=== PATIENT | male | born 1960 | race Caucasian/White ===

== ENCOUNTER 2018-02-25 10:04 | Inpatient (IN) ==
--- NOTE | 2018-02-25 10:30 | CT ---
EXAM DATE: 02/25/2018 10:22 AM EST AGE/SEX: 57 years / Male INDICATIONS: STROKE ALERT CLINICAL DATA: This is the patient's initial encounter. Patient reports that signs and symptoms have been present for 1 day and indicates a pain score of Nonresponsive. MEDICAL/SURGICAL HISTORY: None. None. RADIATION DOSE: 53.46 CTDI (mGy) COMPARISON: No prior exams available for comparison. TECHNIQUE: CT of the head without contrast. Using automated exposure control and adjustment of the mA and/or kV according to patient size, radiation dose was kept as low as reasonably achievable to ob tain optimal diagnostic quality images. DICOM format image data is available electronically for revi ew and comparison. FINDINGS: Cerebrum: The ventricles are normal for age. No evidence of midline shift, mass lesion, hemorrhage or acute infarction. No extraaxial fluid collections are seen. Posterior Fossa: There is acute high density material identified within the central farida consistent with acute hemorrhage. The fourth ventricle is patent. Extracranial: The visualized portion of the orbits is intact. Skull: The calvaria is intact. No evidence of skull fracture. CONCLUSION: 1. Acute pontine hemorrhage. No evidence of hydrocephalus or effacement of the fourth ventricle. Report was called by [Dr. Nicolas to Dr. Ramires at 10:27 AM. ] Electronically signed by: Chari Nicolas MD Board Certified Radiologist 02/25/2018 10:28 AM Harshil SANTILLAN
--- NOTE | 2018-02-25 10:32 | ED ---
HPI General Chief Complaint: Stroke Alert Stated Complaint: stroke alert/evac Time Seen by Provider: 02/25/18 10:06 History of Present Illness HPI Narrative: Is a 57-year-old male with history of hypertension, dyslipidemia , tobacco use, presents via EMS as a stroke alert. Patient was last seen normal at 7:40 AM. Patient apparently started experiencing slurred speech with right-sided facial droop and left upper and lower extremity weakness. Patient also has dysarthria. Patient denies any headache. He denies any previous history of stroke. Patient was just recently seen by his primary care physician according to the medics. There are no other complaints at time of examination. Related Data Home Medications Medication Instructions Recorded Confirmed albuterol sulfate [ProAir HFA] 2 puff INHALATION Q4-6H PRN 02/25/18 02/25/18 fpmfxfi-bxnmxjnvazopo-emnmugmo 1 tab PO Q4-6H PRN 02/25/18 02/25/18 [Excedrin Extra Strength] carvedilol 12.5 mg PO DAILY 02/25/18 02/25/18 gabapentin 600 mg PO TID 02/25/18 02/25/18 hydrocodone-acetaminophen 1 tab PO Q4H PRN 02/25/18 02/25/18 Allergies Allergy/AdvReac Type Severity Reaction Status Date / Time No Known Allergies Allergy Verified 02/25/18 10:07 Review of Systems ROS: all other systems reviewed are negative Constitutional Reports system reviewed and no additional complaints, except as docu Eyes Reports blurry vision (Denies) and Denies diplopia (Denies) ENT Reports system reviewed and no additional complaints, except as docu Cardiovascular Denies chest pain and Denies irregular heart rhythm Respiratory Denies chest congestion and Denies cough Gastrointestinal Denies abdominal pain, Reports nausea and Reports vomiting Genitourinary Reports system reviewed and no additional complaints, except as docu Musculoskeletal Reports other (Left upper and lower extremity weakness) Neurologic Denies confusion, Denies syncope, Denies headache(s), Reports weakness and Reports other (Dysarthria) PMFSH Medical History Medical History Chronic back pain (Acute) Hyperlipidemia (Acute) Hypertension (Acute) Surgical History Surgical History Previous back surgery (Acute) Social History Social History Recent Travel in [facility] within the Last 8 Weeks: No Recent Out of Country Travel within the Last 8 Weeks: No Exam Narrative Exam Narrative: GENERAL: Well-developed well-nourished male in no acute respiratory distress. SKIN: Focused skin assessment warm/dry. HEAD: Atraumatic. Normocephalic. EYES: Pupils equal and round. No scleral icterus. No injection or drainage. ENT: No nasal bleeding or discharge. Mucous membranes pink and moist. NECK: Trachea midline. Supple CARDIOVASCULAR: Regular rate and rhythm. No murmur appreciated. RESPIRATORY: No accessory muscle use. Clear to auscultation. Breath sounds equal bilaterally. GASTROINTESTINAL: Abdomen soft, non-tender, nondistended. Hepatic and splenic margins not palpable. MUSCULOSKELETAL: No obvious deformities. No clubbing. No cyanosis. No edema. NEUROLOGICAL: Awake and alert. Right-sided facial droop. Patient had 3 out of 5 strength in his left upper extremity and 4 out of 5 strength in his left lower extremity. He was unable to perform heel to le with his left leg. Patient does have dysarthria as well. There is no confusion. Course Initial Documented Vital Signs Temperature 98.2 F 02/25/18 10:05 Pulse Rate 54 L 02/25/18 10:05 Respiratory Rate 18 02/25/18 10:05 Blood Pressure 188/100 H 02/25/18 10:05 Pulse Oximetry 97 02/25/18 10:05 Last Documented Vital Signs Temperature 98.2 F 02/25/18 10:05 Pulse Rate 56 L 02/25/18 11:26 Respiratory Rate 26 H 02/25/18 11:26 Blood Pressure 188/100 H 02/25/18 10:05 Pulse Oximetry 98 02/25/18 11:26 Critical Care Time Critical Care Time: Yes Total Critical Care Time: 45 Attestation: Aggregate critical care time was 45 minutes. Time to perform other separately billable procedures was not included in the critical care time. My time did not include minutes spent treating any other patients simultaneously or on activities that did not directly contribute to the patient's treatment. The services I provided to this patient were to treat and/or prevent clinically significant deterioration that could result in: I provided critical care services requiring my management, as noted below: Chart data review, documentation time, medication orders and management, vital sign assessments/reviewing monitor data, ordering and reviewing lab tests, ordering and interpreting/reviewing x-rays and diagnostic studies, care of the patient and discussion of the patient with the admitting physicians. NIH Stroke Scale NIH Stroke Scale Level of Consciousness: 0-Alert Orientation Questions: 0-Answers both correct Responds to Commands: 0-Both tasks correct Gaze Eye Movement: 0-Horizontal movement WNL Visual Dupont: 0-No visual field defect Facial Movement: 1-Minor facial palsy Motor Functions Arm LEFT: 1-Drift before 10 seconds Motor Functions Arm RIGHT: 0-No drift Motor Functions Leg LEFT: 1-Drift before 5 seconds Motor Functions Leg RIGHT: 0-No drift Limb Ataxia: 2-Ataxia in two limbs Sensory Loss: 0-No sensory loss Best Language: 0-Normal Articulation: 1-Mild dysarthia Extinction or Inattention Sensory: 0-Absent Total: 6 Medical Decision Making MDM Narrative Medical decision making narrative: This is a 57-year-old male with history of hypertension, dyslipidemia, tobacco use, presents here via EMS as a stroke alert. The patient was last seen normal at 7:40 AM. He was within the 3-hour window. Patient was taken emergently to the CT scan which showed a pontine hemorrhage. There was no fourth ventricle effacement. Patient was awake and up alert. He did have dysarthria. Patient's blood pressure was 188/100. Case was discussed with Dr. Bigg Ramires, on-call neurologist who recommended patient be transferred emergently to the [facility] with neurosurgery consult. I spoke with Dr. Church, on-call neurosurgeon, who will see the patient in consultation. Discussion was whether or not to lower his blood pressure and the decision was made to keep it as it is until he arrived at the [facility]. Case was discussed with Dr. Kidd, on-call identity access management architect who will let the ISC intensive is no about the admission. Medical Screen Exam Complete: Yes Emergency Medical Condition: Yes Differential Diagnosis Differential Diagnosis: Embolic versus hemorrhagic stroke versus Hardy's palsy versus metabolic derangement versus hypoglycemia Lab Data Result diagrams: 02/25/18 11:11 02/25/18 11:11 Lab Results 02/25/18 02/25/18 02/25/18 Range/Units 10:23 11:11 11:11 CBC w Diff Auto diff final WBC 8.9 (4.0-11.0) th/mm3 RBC 4.63 (4.50-5.90) mil/mm3 Hgb 12.7 L (13.0-17.0) gm/dL Hct 38.9 L (39.0-51.0) % MCV 84.0 (80.0-100.0) fL MCH 27.5 (27.0-34.0) pg MCHC 32.7 (32.0-36.0) % RDW 15.8 (11.6-17.2) % Plt Count 432 (150-450) th/mm3 MPV 8.1 (7.0-11.0) fL Neut % (Auto) 51.7 (16.0-70.0) % Lymph % (Auto) 33.9 (9.0-44.0) % [place] % (Auto) 8.3 H (0.0-8.0) % Eos % (Auto) 4.9 H (0.0-4.0) % Baso % (Auto) 1.2 (0.0-2.0) % Neut # (Auto) 4.7 (1.8-7.7) th/mm3 Lymph # (Auto) 3.0 (1.0-4.8) th/mm3 [place] # (Auto) 0.7 (0.0-0.9) th/mm3 Eos # (Auto) 0.4 (0.0-0.4) th/mm3 Baso # (Auto) 0.1 (0.0-0.2) th/mm3 WBC Differential . Differential Comment . PT 10.7 (9.8-11.6) sec INR 1.1 Ratio APTT 28.4 (23.4-31.7) sec Fibrinogen 309 (227-377) mg/dL Sodium (136-145) meq/L Potassium (3.5-5.1) meq/L Chloride (98-107) meq/L Carbon Dioxide (21.0-32.0) meq/L Anion Gap (5-15) meq/L BUN (7-18) mg/dL Creatinine (0.60-1.30) mg/dL Estimated GFR (>89) mL/min POC Glucose 91 (68-110) mg/dl Random Glucose (74-106) mg/dL Calcium (8.5-10.1) mg/dL Phosphorus (2.5-4.9) mg/dL Magnesium (1.5-2.5) mg/dL Total Bilirubin (0.2-1.0) mg/dL AST (15-37) U/L ALT (12-78) U/L Alkaline Phosphatase (45-117) U/L Total Creatine Kinase (39-308) U/L Troponin I (0.02-0.05) ng/mL Total Protein (6.4-8.2) g/dL Albumin (3.4-5.0) g/dL TSH (0.358-3.740) uIU/mL 02/25/18 Range/Units 11:11 CBC w Diff WBC (4.0-11.0) th/mm3 RBC (4.50-5.90) mil/mm3 Hgb (13.0-17.0) gm/dL Hct (39.0-51.0) % MCV (80.0-100.0) fL MCH (27.0-34.0) pg MCHC (32.0-36.0) % RDW (11.6-17.2) % Plt Count (150-450) th/mm3 MPV (7.0-11.0) fL Neut % (Auto) (16.0-70.0) % Lymph % (Auto) (9.0-44.0) % [place] % (Auto) (0.0-8.0) % Eos % (Auto) (0.0-4.0) % Baso % (Auto) (0.0-2.0) % Neut # (Auto) (1.8-7.7) th/mm3 Lymph # (Auto) (1.0-4.8) th/mm3 [place] # (Auto) (0.0-0.9) th/mm3 Eos # (Auto) (0.0-0.4) th/mm3 Baso # (Auto) (0.0-0.2) th/mm3 WBC Differential Differential Comment PT (9.8-11.6) sec INR Ratio APTT (23.4-31.7) sec Fibrinogen (227-377) mg/dL Sodium 138 (136-145) meq/L Potassium 3.7 (3.5-5.1) meq/L Chloride 101 (98-107) meq/L Carbon Dioxide 30.8 (21.0-32.0) meq/L Anion Gap 6 (5-15) meq/L BUN 4 L (7-18) mg/dL Creatinine 0.79 (0.60-1.30) mg/dL Estimated GFR Greater than 89 (>89) mL/min POC Glucose (68-110) mg/dl Random Glucose 84 (74-106) mg/dL Calcium 8.3 L (8.5-10.1) mg/dL Phosphorus 3.1 (2.5-4.9) mg/dL Magnesium 2.1 (1.5-2.5) mg/dL Total Bilirubin 0.4 (0.2-1.0) mg/dL AST 21 (15-37) U/L ALT 15 (12-78) U/L Alkaline Phosphatase 61 (45-117) U/L Total Creatine Kinase 148 (39-308) U/L Troponin I Less than 0.02 L (0.02-0.05) ng/mL Total Protein 7.4 (6.4-8.2) g/dL Albumin 3.9 (3.4-5.0) g/dL TSH 1.480 (0.358-3.740) uIU/mL Imaging Data Radiologist's impression: Chest X-Ray 02/25/18 10:07 CONCLUSION: Cardiomegaly without evidence of congestive heart failure. Head CT 02/25/18 10:07 CONCLUSION: 1. Acute pontine hemorrhage. No evidence of hydrocephalus or effacement of the fourth ventricle. Report was called by [Dr. Nicolas to Dr. Ramires at 10:27 AM. ] Discharge Plan Discharge Disposition Patient Disposition: ED Admit(ED Internal Use Only) Discharge Order Discharge Orders: ED Use Only Admit Order (Routine); Ordered 02/25/18 Ordered By: Lopez Jernigan Discharge Details Diagnosis: Stroke due to intracerebral hemorrhage, Hypertension, Dyslipidemia, Tobacco use disorder Physicians Team ED Provider: Lopez Jernigan Primary Care Provider: Sage Walker Attending Provider: Ratna Darling Other Providers: Bigg Ramires ; James Church ; Dave Morrison Discharge Interventions Interventions: ED Discharge Assessment Last Done: 02/25/18 10:40 Status ED Status: Admitted Patient
--- NOTE | 2018-02-25 10:45 | XR ---
EXAM DATE: 02/25/2018 10:33 AM EST AGE/SEX: 57 years / Male INDICATIONS: Stroke alert CLINICAL DATA: This is the patient's initial encounter. Patient reports that signs and symptoms have been present for 1 day and indicates a pain score of 0/10. MEDICAL/SURGICAL HISTORY: None. None. COMPARISON: No prior exams available for comparison. FINDINGS: Single AP view of the chest demonstrates moderate cardiomegaly. Pulmonary vasculature appears normal in caliber. Lungs are clear. Osseous structures demonstrate fusion hardware within the lower thoracic and upper lumbar spine. CONCLUSION: Cardiomegaly without evidence of congestive heart failure. Electronically signed by: Chari Nicolas MD Board Certified Radiologist 02/25/2018 10:44 AM E
[2018-02-25] MEDS ORDERED: Dextrose 50% in Water 50 ML Vial IV.PUSH PRN (10:55)
[2018-02-25] MEDS ORDERED: Bisacodyl 10 MG Supp RECTAL PRN (10:56)
[2018-02-25] MEDS ORDERED: Sod Chloride 0.9% Inj 1,000 ML IV.CONT SCH (11:00)
[2018-02-25 11:13] LABS: Baso # (Auto) 0.1 th/mm3 (0.0-0.2); Baso % (Auto) 1.2 % (0.0-2.0); Eos # (Auto) 0.4 th/mm3 (0.0-0.4); Eos % (Auto) 4.9 % (0.0-4.0); Hematocrit 38.9 % (39.0-51.0); Hemoglobin 12.7 gm/dL (13.0-17.0); Lymph % (Auto) 33.9 % (9.0-44.0); Mean Corpuscular HGB Conc 32.7 % (32.0-36.0); Mean Corpuscular Hemoglobin 27.5 pg (27.0-34.0); Mean Platelet Volume 8.1 fL (7.0-11.0); Mono # (Auto) 0.7 th/mm3 (0.0-0.9); Mono % (Auto) 8.3 % (0.0-8.0); Neut # (Auto) 4.7 th/mm3 (1.8-7.7); Neut % (Auto) 51.7 % (16.0-70.0); Platelet Count 432 th/mm3 (150-450); Red Blood Count 4.63 mil/mm3 (4.50-5.90); Red Cell Distribution Width 15.8 % (11.6-17.2); White Blood Count 8.9 th/mm3 (4.0-11.0)
[2018-02-25 11:19] LABS: Chloride 101 meq/L (98-107); Potassium 3.7 meq/L (3.5-5.1); Sodium 138 meq/L (136-145)
[2018-02-25 11:25] LABS: Albumin 3.9 g/dL (3.4-5.0); Anion Gap 6 meq/L (5-15); Calcium 8.3 mg/dL (8.5-10.1); Carbon Dioxide 30.8 meq/L (21.0-32.0); Glucose,Random 84 mg/dL (74-106); Magnesium 2.1 mg/dL (1.5-2.5)
[2018-02-25 11:26] LABS: Blood Urea Nitrogen 4 mg/dL (7-18)
[2018-02-25 11:28] LABS: Alanine Aminotransferase 15 U/L (12-78); Aspartate Aminotransferase 21 U/L (15-37)
[2018-02-25 11:29] LABS: Glomerular Filtration Rate Greater Than 89 mL/min (>89); Phosphorus 3.1 mg/dL (2.5-4.9)
[2018-02-25 11:30] LABS: Activated Partial Thrombo Time 28.4 sec (23.4-31.7); INR 1.1 Ratio; Prothrombin Time 10.7 sec (9.8-11.6); Total Protein 7.4 g/dL (6.4-8.2)
[2018-02-25 11:31] LABS: Alkaline Phosphatase 61 U/L (45-117); Creatine Kinase 148 U/L (39-308)
[2018-02-25] MEDS ORDERED: niCARdipine Inj 25 MG in Sodium Chlor 0.9% Inj 240 ML IV.CONT PRN (11:35)
--- NOTE | 2018-02-25 12:03 | P.HPCC ---
History of Present Illness Service: Critical care medicine Primary Care Physician: Sage Walker MD Chief Complaint: Weak left side History of Present Illness: This 57-year-old gentleman developed left-sided weakness and difficulty with speech. He presented as a stroke alert to [facility] with blood pressure 188/100, bradycardia at 52, and a CAT scan which reveals an acute pontine hemorrhage. He was transferred to the main campus or I met him on his arrival to the ICU. Blood pressure is 208/110. 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 He has spinal hardware in place but the extent of the injury is not available to us. He states that with rehabilitation he was walking again. Additionally, he is a heavy smoker and arrives with COPD exacerbation and severe bronchospasm. We have delivered 3 inhalation bronchodilator treatments back to back and his air movement is improved. - Diagnosis (1) Stroke, hemorrhagic (2) Pontine hemorrhage (3) COPD with acute exacerbation (4) Hypertensive urgency (5) Bilateral inguinal hernia Inpatient Certification: I certify that the inpatient services were ordered in accordance with Medicare regulations governing the order. This includes certification that hospital inpatient services are reasonable and necessary and in the case of services not specified as inpatient-only under 42 CFR 419.22(n), that they are appropriately provided as inpatient services in accordance to with the 2-midnight benchmark under 43 CFR 412.3(e) Estimated Total Length of Stay (Days): 5 Plans for Post Hospital Care: Not yet determined Review of Systems No headache. Severe shortness of breath. New-onset slurred speech and left- sided weakness. [facility] - History History Provided By: Patient, Engagement Director / EMT - Medical History Medical History: Medical History (Last Updated 02/25/18 @ 10:31 by Krissy Dozier RN) Chronic back pain Hyperlipidemia Hypertension - Surgical History Surgical History: Surgical History (Last Updated 02/25/18 @ 10:31 by Krissy Dozier RN) Previous back surgery - Travel History Recent Travel in the [place] Within the Last 8 Weeks: No Recent Travel Out of the Country Within the Last 8 Weeks: No Medications and Allergies Active Medications: Active Medications Acetaminophen (Tylenol) 650 mg PO Q6H PRN PRN Reason: PAIN 1-10 AND/OR FEVER >101F Al Hydroxide/Mg Hydroxide (Milk Of Magnesia Liq) 30 ml PO Q12H PRN PRN Reason: Mild Constipation Albuterol (Albuterol Neb (Shakeel)) 2.5 mg NEB Q2HR NEB PRN PRN Reason: SHORTNESS OF BREATH/WHEEZING Albuterol (Duoneb Neb (Prn)) 1 ampul NEB Q4HR NEB [facility] Bisacodyl (Dulcolax Supp) 10 mg RECTAL DAILY PRN PRN Reason: SEVERE CONSITIPATION Chlorhexidine Gluconate (Chlorhexidine 2% Cloth) 3 pack TOPICAL DAILY@0400 SHAKEEL Stop: 03/03/18 03:59 Chlorhexidine Gluconate (Chlorhexidine 2% Cloth) 3 pack TOPICAL DAILY@0400 PRN PRN Reason: Extra cloth needed Stop: 03/03/18 03:59 Dextrose (D50w Vial) 50 ml IV.PUSH UNSCH PRN PRN Reason: PER HYPOGLYCEMIA PROTOCOL Glucagon (Glucagon Inj) 1 mg OTHER PRN PRN PRN Reason: for Hypoglycemia Protocol Hydralazine HCl (Apresoline Inj) 20 mg IV.PUSH Q1H PRN PRN Reason: SBP > 140 Sodium Chloride (Ns Inj) 1,000 mls @ 70 mls/hr IV.CONT .[id number] SHAKEEL Levetiracetam (Keppra 1000 Mg/100 Ml Premix) 100 mls @ 400 mls/hr IV.SIG ONCE ONE Stop: 02/25/18 11:04 Levetiracetam 500 mg/ Sodium (Chloride) 105 mls @ 400 mls/hr IV.SIG Q12H SHAKEEL Nicardipine HCl 25 mg/ Sodium (Chloride) 250 mls @ 50 mls/hr IV.CONT TITRATE PRN; Protocol PRN Reason: Per Protocol Insulin Aspart (Novolog Insulin Correctional Sugar Inj) 0 unit SQ Q6HR [facility]; Protocol Labetalol HCl (Trandate Inj) 10 mg IV.PUSH Q1H PRN PRN Reason: Sbp>140, Dbp>90, Hr>65 Lactulose (Lactulose Liq) 30 ml PO DAILY PRN PRN Reason: SEVERE CONSITIPATION Ondansetron HCl (Zofran Inj) 4 mg IV.PUSH Q6H PRN PRN Reason: NAUSEA Pantoprazole Sodium (Protonix Inj) 40 mg IV.PUSH DAILY SHAKEEL Senna/Docusate Sodium (Marlyn-Colace) 1 tab PO BID [facility] Sennosides (Senokot) 17.2 mg PO Q12H PRN PRN Reason: Moderate Constipation Sodium Chloride (Ns Flush) 2 ml IV.FLUSH BID SHAKEEL Sodium Chloride (Ns Flush) 2 ml IV.FLUSH PRN PRN PRN Reason: FLUSH AFTER USING IV ACCESS Allergies Allergy/AdvReac Type Severity Reaction Status Date / Time No Known Allergies Allergy Verified 02/25/18 10:07 Home Medications Medication Instructions Recorded Confirmed Type albuterol sulfate [ProAir HFA] 2 puff INHALATION Q4-6H PRN 02/25/18 02/25/18 History vwimoju-rovbicedcgydd-alpbvpjo 1 tab PO Q4-6H PRN 02/25/18 02/25/18 History [Excedrin Extra Strength] carvedilol 12.5 mg PO DAILY 02/25/18 02/25/18 History gabapentin 600 mg PO TID 02/25/18 02/25/18 History hydrocodone-acetaminophen 1 tab PO Q4H PRN 02/25/18 02/25/18 History Results - Labs CBC & Chem 7: 02/25/18 11:11 02/25/18 11:11 Labs: Short CBC 02/25/18 Range/Units 11:11 WBC 8.9 (4.0-11.0) th/mm3 Hgb 12.7 L (13.0-17.0) gm/dL Hct 38.9 L (39.0-51.0) % Plt Count 432 (150-450) th/mm3 BMP 02/25/18 11:11 Sodium 138 Potassium 3.7 Chloride 101 Carbon Dioxide 30.8 BUN 4 L Creatinine 0.79 Calcium 8.3 L Liver Function 02/25/18 Range/Units 11:11 Total Bilirubin 0.4 (0.2-1.0) mg/dL AST 21 (15-37) U/L ALT 15 (12-78) U/L Albumin 3.9 (3.4-5.0) g/dL - Imaging Impressions Chest X-Ray 02/25/18 10:07 CONCLUSION: Cardiomegaly without evidence of congestive heart failure. Head CT 02/25/18 10:07 CONCLUSION: 1. Acute pontine hemorrhage. No evidence of hydrocephalus or effacement of the fourth ventricle. Report was called by [Dr. Nicolas to Dr. Ramires at 10:27 AM. ] Exam Vital signs: Vital Signs 02/25/18 10:05 02/25/18 10:27 02/25/18 11:26 Temperature 98.2 F Pulse Rate 52 L 56 L Respiratory Rate 18 26 H Blood Pressure 188/100 H Pulse Oximetry 97 97 98 Intake & Output 02/24/18 02/25/18 02/25/18 18:59 06:59 18:59 Weight 56.1 kg Narrative: General: Middle-aged man in considerable respiratory distress Head: Atraumatic, normal Neck: Supple, airway widely patent, transmitted wheezes from lower airways. Lungs: Diffuse wheezing, poor air movement, left side worse than right. Unlabored respiratory effort. Heart: Distant tones, regular rate and rhythm, bradycardia at 54. Abdomen: Soft, nondistended, no guarding, no tenderness, bowel sounds are present Inguinal region: Bilateral large inguinal hernias with right hernia containing intestine and left hernia containing large amount of intestine extending into scrotum. Extremities: Musculature of the legs diminutive. Neuro: Alert, conversant, oriented x3. RADHA. EOMs intact. Shoulder shrug symmetrical. Tongue protrusion deviates right. Right facial droop. Left arm with 2/5 strength left leg with 4/5 strength, poor coordination. Right arm with 5/5 strength and normal coordination. Right leg with 5/5 strength. Unable to get deep tendon reflex response in either lower extremity. No clonus. Caprini VTE Risk Assessment Caprini VTE Risk Assessment: Moderate/High Risk (score >= 2) VTE Pharmacological Exception Reason: Active bleeding Caprini Risk Assessment Model: Point Value = 1 Point Value = 2 Point Value = 3 Point Value = 5 Age 41-60 Minor surgery BMI > 25 kg/m2 Swollen legs Varicose veins or History of unexplained or recurrent spontaneous Oral contraceptives or hormone replacement Sepsis (< 1 month) Serious lung disease, including pneumonia (< 1 month) Abnormal pulmonary function Acute myocardial infarction Congestive heart failure (< 1 month) History of inflammatory bowel disease Medical patient at bed rest Age 61-74 Arthroscopic surgery Major open surgery (> 45 min) Laparoscopic surgery (> 45 min) Malignancy Confined to bed (> 72 hours) Immobilizing plaster cast Central venous access Age >= 75 History of VTE Family history of VTE Factor V Leiden Prothrombin [id number] Lupus anticoagulant Anticardiolipin antibodies Elevated serum homocysteine Heparin-induced thrombocytopenia Other congenital or acquired thrombophilia Stroke (< 1 month) Elective arthroplasty Hip, pelvis, or leg fracture Acute spinal cord injury (< 1 month) Prophylaxis Regimen: Total Risk Factor Score Risk Level Prophylaxis Regimen 0-1 Low Early ambulation 2 Moderate Order ONE of the following: *Sequential Compression Device (SCD) *Heparin 5000 units SQ BID 3-4 Higher Order ONE of the following medications: *Heparin 5000 units SQ TID *Enoxaparin/Lovenox 40 mg SQ daily (WT < 150 kg, CrCl > 30 mL/min) *Enoxaparin/Lovenox 30 mg SQ daily (WT < 150 kg, CrCl > 10-29 mL/min) *Enoxaparin/Lovenox 30 mg SQ BID (WT < 150 kg, CrCl > 30 mL/min) AND/OR *Sequential Compression Device (SCD) 5 or more Highest Order ONE of the following medications: *Heparin 5000 units SQ TID (Preferred with Epidurals) *Enoxaparin/Lovenox 40 mg SQ daily (WT < 150 kg, CrCl > 30 mL/min) *Enoxaparin/Lovenox 30 mg SQ daily (WT < 150 kg, CrCl > 10-29 mL/min) *Enoxaparin/Lovenox 30 mg SQ BID (WT < 150 kg, CrCl > 30 mL/min) AND *Sequential Compression Device (SCD) Assessment and Plan - Problem List (1) Stroke, hemorrhagic Code(s): I61.9 - Nontraumatic intracerebral hemorrhage, unspecified Status: Acute (2) Pontine hemorrhage Code(s): I61.3 - Nontraumatic intracerebral hemorrhage in brain stem Status: Acute (3) COPD with acute exacerbation Code(s): J44.1 - Chronic obstructive pulmonary disease with (acute) exacerbation Status: Acute (4) Hypertensive urgency Code(s): I16.0 - Hypertensive urgency Status: Acute (5) Bilateral inguinal hernia Code(s): K40.20 - Bilateral inguinal hernia, without obstruction or gangrene, not specified as recurrent Status: Acute - Assessment and Plan Plan: Plan: Neurological -Maintain systolic blood pressure less than 140 with intravenous Cardene -Watch airway control carefully -Neurosurgical evaluation -Check coagulation profile and platelet count -Repeat CAT scan for sudden deterioration, follow with repeat in a.m. Cardiovascular -Hold patient's home beta-katiana due to bradycardia -Maintain blood pressure less than 140/90 Respiratory -Head of bed up 30 degrees until bronchospasm breaks -Albuterol bronchodilator inhalation therapy -Supplemental oxygen to maintain sat greater than 92% -Steroids every 6 hours if bronchospasm persists GI -N.p.o. -Swallow evaluation -May need nasogastric tube -Watch I's and O's closely. Renal -Hold patient's oral antihypertensives and use short acting agents for now Hematology -Anticipate chronic polycythemia ID -Cover with Levaquin for COPD exacerbation Prophylaxis -SCDs -Chemical DVT prophylaxis contraindicated because of acute bleed -Pepcid for GI ulcer prophylaxis Overall impression: This 57-year-old gentleman arrives in critical condition with a hypertensive hemorrhage in the farida. His care is further complicated by malignant hypertension and COPD exacerbation. He remains critically ill and his condition is guarded at this time. Critical care time 45 minutes aside from procedures. (5) Bilateral inguinal hernia Qualifiers: Obstruction and gangrene presence: without obstruction or gangrene Recurrence : recurrent Qualified Code(s): K40.21 - Bilateral inguinal hernia, without obstruction or gangrene, recurrent
[2018-02-25] MEDS ORDERED: Potassium Chloride 25 MEQ Effervescent Tablet PO PRN (12:04)
[2018-02-25] MEDS ORDERED: Magnesium Sulfate Inj 2 GM in Sodium Chlor 0.9% Inj 96 ML IV.SIG PRN (12:04)
[2018-02-25] MEDS ORDERED: Potassium Phosphate 500 MG Soluble Tablet PO PRN ×2 (12:04)
[2018-02-25] MEDS ORDERED: Potassium Phosphate Inj 30 MMOL in Sodium Chlor 0.9% Inj 250 ML IV.SIG PRN (12:04)
[2018-02-25] MEDS ORDERED: Potassium Chlor 20 mEq Premix 20 MEQ/100 ML PIGGYBACK IV.SIG PRN (12:04)
[2018-02-25] MEDS ORDERED: Magnesium Oxide 400 MG Tablet PO PRN (12:04)
[2018-02-25] MEDS ORDERED: Magnesium Sulfate Inj 4 GM in Sodium Chlor 0.9% Inj 92 ML IV.SIG PRN (12:04)
[2018-02-25] MEDS ORDERED: Sodium Phosphate Inj 30 MMOL in Sodium Chlor 0.9% Inj 250 ML IV.SIG PRN (12:04)
[2018-02-25] MEDS ORDERED: Potassium Chlor 40 mEq Premix 40 MEQ/100 ML PIGGYBACK IV.SIG PRN ×2 (12:04)
[2018-02-25] MEDS: Sod Chloride 0.9% Inj 1,000 ML IV.CONT SCH (12:23)
[2018-02-25] MEDS: Insulin NovoLOG Aspart Correctional Sugar Inj SQ SCH ×2 (12:55→17:59)
[2018-02-25] MEDS ORDERED: levETIRAcetam 1000mg/100mL Inj 100 ML IV.SIG ONE (13:00)
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
[2018-02-25] MEDS ORDERED: Gadobutrol PF 7.5 MMOL/7.5 ML Vial (for RAD) IV.SIG ONE (15:09)
--- NOTE | 2018-02-25 15:27 | MR ---
EXAM DATE: 02/25/2018 3:21 PM EST AGE/SEX: 57 years / Male INDICATIONS: Hemorrhage. CLINICAL DATA: This is the patient's initial encounter. Patient reports that signs and symptoms have been present for 1 day and indicates a pain score of 0/10. MEDICAL/SURGICAL HISTORY: Hypertension. . Huynh jodee placement COMPARISON: [facility], CT HEAD W/O CONTRAST, 02/25/2018. . TECHNIQUE: Multiplanar, multisequence examination of the brain was performed without and with 6 ml Ga davist (gadobutrol) contrast as a single exam dose. FINDINGS: The area of acute right pontine hemorrhage is identified demonstrates maximum SUV of susceptibility a rtifact measures almost 1.4 cm in size. There is of the brain does not demonstrate any abnormal diffu jose j. Slight degree of brain atrophy is seen. Significant periventricular white matter changes seen nonspecific mostly consistent with chronic smal l vessel ischemic changes. CONCLUSION: 1. There is acute hemorrhage in right farida without any significant mass effect. Etiology for this he morrhage is not certain could be a hemorrhagic stroke. Electronically signed by: Tonya Farr MD Board Certified Radiologist 02/25/2018 3:25 PM EST
--- NOTE | 2018-02-25 15:29 | MR ---
EXAM DATE: 02/25/2018 3:21 PM EST AGE/SEX: 57 years / Male INDICATIONS: Hemorrhage. CLINICAL DATA: This is the patient's initial encounter. Patient reports that signs and symptoms have been present for 1 day and indicates a pain score of 0/10. MEDICAL/SURGICAL HISTORY: Hypertension. . Huynh jodee placement. COMPARISON: [facility], MR HEAD W & W/O CONTRAST, 02/25/2018. [facility], CT HEAD W/O CONTRAST, 02/25/2018. . TECHNIQUE: 3D [id number] MRA was performed. Source images, multiplanar STS MIP, and 3D volum e MIP reconstructions were reviewed. FINDINGS: There is excellent visualization of the major intracranial arteries out to the second-order branch ve ssels. There is no evidence for aneurysm, vessel truncation or stenosis, and no evidence for vascula r malformation. CONCLUSION: 1. Negative MRA Cow ([facility] [place]) non contrast. Electronically signed by: Tonya Farr MD Board Certified Radiologist 02/25/2018 3:28 PM EST
[2018-02-25 20:32] LABS: Bilirubin,Urine Negative (Negative); Clarity,Urine Clear (Clear); Color,Urine Straw (Yellw/Straw); Glucose,Urine (UA) Negative (Negative); Leukocyte Esterase,Urine Negative (Negative); Mucus,Urine Few /lpf (Occasional); Nitrite,Urine Negative (Negative); Specific Gravity,Urine 1.008 (1.002-1.035)
[2018-02-25] MEDS: Morphine Sulfate Inj 2 MG/ML Vial IV.PUSH PRN (20:33)
[2018-02-25] MEDS: Senna/Docusate Sodium 8.6/50 MG Tablet PO SCH (20:47)
[2018-02-26] MEDS: Insulin NovoLOG Aspart Correctional Sugar Inj SQ SCH ×4 (00:03→17:25)
[2018-02-26] MEDS: Morphine Sulfate Inj 2 MG/ML Vial IV.PUSH PRN (00:03)
[2018-02-26] MEDS: Sod Chloride 0.9% Inj 1,000 ML IV.CONT SCH (00:39)
[2018-02-26 00:57] LABS: Amphetamine Screen,Urine Neg (Neg); Barbiturate Screen,Urine Neg (Neg); Cannabinoid Screen,Urine Neg (Neg); Cocaine Screen,Urine Neg (Neg)
[2018-02-26 00:58] LABS: Opiate Screen,Urine Neg (Neg)
[2018-02-26] MEDS: Morphine Inj 4 MG/ML Vial IV.PUSH PRN ×5 (02:37→21:59)
[2018-02-26 03:42] LABS: Baso # (Auto) 0.2 th/mm3 (0.0-0.2); Baso % (Auto) 2.4 % (0.0-2.0); Eos # (Auto) 0.2 th/mm3 (0.0-0.4); Eos % (Auto) 2.6 % (0.0-4.0); Hemoglobin 11.6 gm/dL (13.0-17.0); Lymph # (Auto) 1.8 th/mm3 (1.0-4.8); Lymph % (Auto) 22.1 % (9.0-44.0); Mean Corpuscular HGB Conc 33.1 % (32.0-36.0); Mean Corpuscular Hemoglobin 28.2 pg (27.0-34.0); Mean Platelet Volume 7.5 fL (7.0-11.0); Mono # (Auto) 0.6 th/mm3 (0.0-0.9); Mono % (Auto) 7.7 % (0.0-8.0); Neut # (Auto) 5.3 th/mm3 (1.8-7.7); Neut % (Auto) 65.2 % (16.0-70.0); Platelet Count 337 th/mm3 (150-450); Red Blood Count 4.11 mil/mm3 (4.50-5.90); Red Cell Distribution Width 16.2 % (11.6-17.2); White Blood Count 8.1 th/mm3 (4.0-11.0)
[2018-02-26 03:53] LABS: Activated Partial Thrombo Time 28.2 sec (23.4-31.7); INR 1.1 Ratio; Prothrombin Time 10.8 sec (9.8-11.6)
[2018-02-26 03:57] LABS: Albumin 3.4 g/dL (3.4-5.0); Anion Gap 4 meq/L (5-15); Aspartate Aminotransferase 14 U/L (15-37); Blood Urea Nitrogen 6 mg/dL (7-18); Carbon Dioxide 30.6 meq/L (21.0-32.0); Chloride 106 meq/L (98-107); Glomerular Filtration Rate Greater Than 89 mL/min (>89); Glucose,Random 85 mg/dL (74-106); Potassium 3.5 meq/L (3.5-5.1); Sodium 141 meq/L (136-145)
[2018-02-26 03:59] LABS: Alanine Aminotransferase 13 U/L (12-78); Alkaline Phosphatase 57 U/L (45-117); Total Protein 6.6 g/dL (6.4-8.2)
[2018-02-26] MEDS ORDERED: Chlorhexidine Gluconate 2% 1 Pack (2 Cloths) TOPICAL PRN (04:00)
[2018-02-26] MEDS: Chlorhexidine Gluconate 2% 1 Pack (2 Cloths) TOPICAL SCH (04:33)
[2018-02-26] MEDS: Potassium Chlor 20 mEq Premix 20 MEQ/100 ML PIGGYBACK IV.SIG PRN ×2 (04:34→07:47)
[2018-02-26] MEDS: Senna/Docusate Sodium 8.6/50 MG Tablet PO SCH ×2 (08:39→20:55)
[2018-02-26] MEDS: Pantoprazole Inj 40 MG Vial IV.PUSH SCH (08:39)
--- NOTE | 2018-02-26 10:23 | CT ---
EXAM DATE: 02/26/2018 10:16 AM EST AGE/SEX: 57 years / Male INDICATIONS: Post stroke 1 day ago CLINICAL DATA: This is the patient's subsequent encounter. Patient reports that signs and symptoms h ave been present for 1 day and indicates a pain score of 6/10. MEDICAL/SURGICAL HISTORY: Hypertension. . back surgery RADIATION DOSE: 34.36 CTDI (mGy) ; Patient motion COMPARISON: [facility], CT HEAD W/O CONTRAST, 02/25/2018. [facility], MRA HEAD W/O CONTRAST, 02/25/2018. . TECHNIQUE: CT of the head without contrast. Using automated exposure control and adjustment of the mA and/or kV according to patient size, radiation dose was kept as low as reasonably achievable to ob tain optimal diagnostic quality images. DICOM format image data is available electronically for revi ew and comparison. FINDINGS: Cerebrum: The ventricles are normal for age. No evidence of midline shift, mass lesion, hemorrhage or acute infarction. No extraaxial fluid collections are seen. Posterior Fossa: Stable focal high attenuation identified within the farida consistent with focal hemo rrhage. The fourth ventricle remains patent. No significant mass effect seen within the cerebellum. Extracranial: The visualized portion of the orbits is intact. Skull: The calvaria is intact. No evidence of skull fracture. CONCLUSION: 1. Stable appearance of pontine hemorrhage without evidence of mass effect or effacement of the four th ventricle. . Electronically signed by: Chari Nicolas MD Board Certified Radiologist 02/26/2018 10:22 AM E
--- NOTE | 2018-02-26 12:44 | P.PNNS ---
Subjective Interval history: The patient appears to have remained stable overnight. He denies headache. He complains of weakness of his left side Physical Exam Vital signs: Vital Signs 02/25/18 12:45 02/25/18 13:00 02/25/18 13:15 Temperature Pulse Rate 77 80 81 Respiratory Rate 31 H 32 H 36 H Blood Pressure 109/63 108/63 146/67 H Pulse Oximetry 91 L 92 L 91 L 02/25/18 13:30 02/25/18 13:45 02/25/18 14:00 Temperature Pulse Rate 83 75 77 Respiratory Rate 39 H 26 H 43 H Blood Pressure 136/70 112/67 127/58 L Pulse Oximetry 89 L 91 L 90 L 02/25/18 14:12 02/25/18 14:15 02/25/18 14:30 Temperature Pulse Rate 56 L 79 59 L Respiratory Rate 16 24 15 Blood Pressure 116/62 103/57 L Pulse Oximetry 92 L 99 02/25/18 14:35 02/25/18 14:44 02/25/18 14:45 Temperature Pulse Rate 52 L 60 59 L Respiratory Rate 25 H 22 Blood Pressure 107/53 L 112/56 L Pulse Oximetry 100 95 94 L 02/25/18 14:46 02/25/18 15:21 02/25/18 15:23 Temperature Pulse Rate 79 Respiratory Rate 23 Blood Pressure 121/75 Pulse Oximetry 94 L 92 L 02/25/18 15:30 02/25/18 15:33 02/25/18 15:45 Temperature Pulse Rate 85 72 67 Respiratory Rate 22 35 H 33 H Blood Pressure 113/73 Pulse Oximetry 92 L 91 L 92 L 02/25/18 16:00 02/25/18 16:04 02/25/18 16:15 Temperature Pulse Rate 68 67 65 Respiratory Rate 36 H 41 H 48 H Blood Pressure 121/73 Pulse Oximetry 93 L 93 L 92 L 02/25/18 16:30 02/25/18 16:45 02/25/18 17:00 Temperature 98.2 F Pulse Rate 57 L 61 57 L Respiratory Rate 31 H 30 H 24 Blood Pressure Pulse Oximetry 95 97 98 02/25/18 17:04 02/25/18 17:15 02/25/18 17:30 Temperature Pulse Rate 60 66 62 Respiratory Rate 32 H 42 H 47 H Blood Pressure 140/74 Pulse Oximetry 97 96 94 L 02/25/18 17:45 02/25/18 18:00 02/25/18 18:04 Temperature Pulse Rate 57 L 61 58 L Respiratory Rate 39 H 33 H 30 H Blood Pressure 132/73 Pulse Oximetry 95 92 L 95 02/25/18 18:15 02/25/18 19:00 02/25/18 20:00 Temperature 98.4 F Pulse Rate 54 L 57 L 55 L Respiratory Rate 28 H 16 57 H Blood Pressure 139/90 130/80 Pulse Oximetry 97 99 95 02/25/18 20:43 02/25/18 20:47 02/25/18 21:00 Temperature Pulse Rate 56 L Respiratory Rate 22 17 Blood Pressure 133/77 Pulse Oximetry 98 98 02/25/18 22:00 02/25/18 23:00 02/26/18 00:00 Temperature 98.5 F Pulse Rate 50 L 49 L 50 L Respiratory Rate 25 H 13 97 H Blood Pressure 127/62 147/69 H 141/82 H Pulse Oximetry 98 99 98 02/26/18 01:00 02/26/18 02:00 02/26/18 03:00 Temperature Pulse Rate 51 L 51 L 50 L Respiratory Rate 23 21 25 H Blood Pressure 138/85 154/86 H 124/60 Pulse Oximetry 100 99 95 02/26/18 04:00 02/26/18 05:00 02/26/18 06:00 Temperature 99.1 F Pulse Rate 50 L 52 L 52 L Respiratory Rate 13 19 16 Blood Pressure 139/66 162/78 H 139/81 Pulse Oximetry 96 94 L 96 02/26/18 06:15 02/26/18 06:30 02/26/18 06:45 Temperature Pulse Rate 53 L 52 L 55 L Respiratory Rate 32 H 31 H 27 H Blood Pressure Pulse Oximetry 97 98 97 02/26/18 07:00 02/26/18 07:04 02/26/18 07:15 Temperature 99.5 F Pulse Rate 52 L 52 L 52 L Respiratory Rate 21 16 31 H Blood Pressure 155/80 H 148/75 H Pulse Oximetry 96 96 97 02/26/18 07:30 02/26/18 07:45 02/26/18 08:00 Temperature 99.5 F Pulse Rate 55 L 54 L 55 L Respiratory Rate 29 H 23 26 H Blood Pressure Pulse Oximetry 95 97 97 02/26/18 08:04 02/26/18 08:15 02/26/18 08:21 Temperature Pulse Rate 55 L 56 L 55 L Respiratory Rate 16 29 H 15 Blood Pressure 155/80 H Pulse Oximetry 98 95 96 02/26/18 08:30 02/26/18 08:45 02/26/18 09:00 Temperature Pulse Rate 56 L 56 L 57 L Respiratory Rate 21 16 23 Blood Pressure Pulse Oximetry 99 96 95 02/26/18 09:04 02/26/18 09:15 02/26/18 09:30 Temperature Pulse Rate 57 L 56 L 62 Respiratory Rate 12 24 21 Blood Pressure 144/77 H Pulse Oximetry 96 96 96 02/26/18 09:45 02/26/18 10:00 02/26/18 10:04 Temperature 99.5 F Pulse Rate 56 L 61 55 L Respiratory Rate 20 16 Blood Pressure 132/73 132/73 Pulse Oximetry 95 94 L 95 02/26/18 10:15 02/26/18 10:30 02/26/18 10:45 Temperature Pulse Rate 56 L 54 L 57 L Respiratory Rate 15 23 Blood Pressure Pulse Oximetry 95 95 96 02/26/18 11:00 02/26/18 11:15 02/26/18 11:24 Temperature 99.4 F Pulse Rate 54 L 54 L 54 L Respiratory Rate 14 20 18 Blood Pressure 135/83 135/83 Pulse Oximetry 95 93 L 97 02/26/18 11:30 Temperature Pulse Rate 54 L Respiratory Rate 18 Blood Pressure Pulse Oximetry 96 Intake & Output 02/25/18 02/26/18 02/26/18 18:59 06:59 18:59 Intake Total 100 / 100 105 / 105 1100 / 1100 Output Total 750 / 750 450 / 450 Balance -650 / -650 -345 / -345 1100 / 1100 Weight 57.3 kg 58.9 kg Intake: IV 100 / 100 105 / 105 1100 / 1100 NS Inj 1,000 ML @ 45 mls/hr IV. 1000 / 1000 CONT .[id number] SHASHANK Rx#: [id number] KCl 20 mEq Premix Inj 20 meq In 100 / 100 100 ml @ 50 mls/hr IV.SIG Q2H PRN Rx#:[id number] Keppra 1000 mg/100 mL Premix 100 / 100 100 ML @ 400 mls/hr IV.SIG ONCE ONE Rx#:[id number] Keppra Inj 500 MG In NS Inj 100 105 / 105 ML @ 400 mls/hr IV.SIG Q12H SHASHANK Rx#:[id number] Output: Urine 750 / 750 450 / 450 Other: # Voids 4 # Bowel Movements 0 Weight On Admission 57.3 kg - Detailed Neurological Exam: Coma Scale The patient is lying in bed as I enter the room. He is in no acute distress. Mental status testing finds him to be awake and alert. He is oriented by 3. Cognitive function is grossly intact. His speech is fluent. Cranial nerve testing 2 through 12 is grossly intact. There appears to be a very subtle residual left facial weakness. He moves all 4 extremities but has a moderate left hemiparesis arm greater than leg. There does not appear to be any acute sensory changes and he is intact light touch and position throughout. I reviewed the MRI scan of the brain done with and without contrast as well as the MRA of the brain all obtained yesterday and there is no sign of AVM or cavernoma or neoplasm. There is no hydrocephalus noted. The acute pontine hemorrhage is well visualized with generalized atrophy and some white matter changes noted. Assessment and Plan - Plan From a neurosurgical perspective the patient is stable. His blood pressure appears to be fairly well controlled. I have discussed the results of the imaging with the patient and explained to him that he has suffered a stroke the cause of which most likely is uncontrolled hypertension. At this point certainly conservative neurosurgical approach is warranted. The patient will require an aggressive course of post stroke rehabilitation. Neurosurgery will follow.
--- NOTE | 2018-02-26 16:17 | P.PNCC ---
Subjective Subjective Remarks/Hospital Course: This 57-year-old gentleman developed left-sided weakness and difficulty with speech. He presented as a stroke alert to [facility] with blood pressure 188/100, bradycardia at 52, and a CAT scan which reveals an acute pontine hemorrhage. He was transferred to the main campus or I met him on his arrival to the ICU. Blood pressure is 208/110. 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 He has spinal hardware in place but the extent of the injury is not available to us. He states that with rehabilitation he was walking again. Additionally, he is a heavy smoker and arrives with COPD exacerbation and severe bronchospasm. We have delivered 3 inhalation bronchodilator treatments back to back and his air movement is improved. 02/26: Bronchospasm has resolved using nebulizer treatments. Steroids not required. Neurologic exam largely unchanged. Blood pressure control acceptable in the range of [id number]. Ongoing workup to include swallow evaluation and physical therapy assessment. - Diagnosis (1) Stroke, hemorrhagic (2) Pontine hemorrhage (3) COPD with acute exacerbation (4) Hypertensive urgency (5) Bilateral inguinal hernia Objective Vital Signs / I&O: Vital Signs 02/25/18 16:15 02/25/18 16:30 02/25/18 16:45 Temperature 98.2 F Pulse Rate 65 57 L 61 Respiratory Rate 48 H 31 H 30 H Blood Pressure Pulse Oximetry 92 L 95 97 02/25/18 17:00 02/25/18 17:04 02/25/18 17:15 Temperature Pulse Rate 57 L 60 66 Respiratory Rate 24 32 H 42 H Blood Pressure 140/74 Pulse Oximetry 98 97 96 02/25/18 17:30 02/25/18 17:45 02/25/18 18:00 Temperature Pulse Rate 62 57 L 61 Respiratory Rate 47 H 39 H 33 H Blood Pressure Pulse Oximetry 94 L 95 92 L 02/25/18 18:04 02/25/18 18:15 02/25/18 19:00 Temperature Pulse Rate 58 L 54 L 57 L Respiratory Rate 30 H 28 H 16 Blood Pressure 132/73 139/90 Pulse Oximetry 95 97 99 02/25/18 20:00 02/25/18 20:43 02/25/18 20:47 Temperature 98.4 F Pulse Rate 55 L Respiratory Rate 57 H 22 Blood Pressure 130/80 Pulse Oximetry 95 98 02/25/18 21:00 02/25/18 22:00 02/25/18 23:00 Temperature Pulse Rate 56 L 50 L 49 L Respiratory Rate 17 25 H 13 Blood Pressure 133/77 127/62 147/69 H Pulse Oximetry 98 98 99 02/26/18 00:00 02/26/18 01:00 02/26/18 02:00 Temperature 98.5 F Pulse Rate 50 L 51 L 51 L Respiratory Rate 97 H 23 21 Blood Pressure 141/82 H 138/85 154/86 H Pulse Oximetry 98 100 99 02/26/18 03:00 02/26/18 04:00 02/26/18 05:00 Temperature 99.1 F Pulse Rate 50 L 50 L 52 L Respiratory Rate 25 H 13 19 Blood Pressure 124/60 139/66 162/78 H Pulse Oximetry 95 96 94 L 02/26/18 06:00 02/26/18 06:15 02/26/18 06:30 Temperature Pulse Rate 52 L 53 L 52 L Respiratory Rate 16 32 H 31 H Blood Pressure 139/81 Pulse Oximetry 96 97 98 02/26/18 06:45 02/26/18 07:00 02/26/18 07:04 Temperature 99.5 F Pulse Rate 55 L 52 L 52 L Respiratory Rate 27 H 21 16 Blood Pressure 155/80 H 148/75 H Pulse Oximetry 97 96 96 02/26/18 07:15 02/26/18 07:30 02/26/18 07:45 Temperature Pulse Rate 52 L 55 L 54 L Respiratory Rate 31 H 29 H 23 Blood Pressure Pulse Oximetry 97 95 97 02/26/18 08:00 02/26/18 08:04 02/26/18 08:15 Temperature 99.5 F Pulse Rate 55 L 55 L 56 L Respiratory Rate 26 H 16 29 H Blood Pressure 155/80 H Pulse Oximetry 97 98 95 02/26/18 08:21 02/26/18 08:30 02/26/18 08:45 Temperature Pulse Rate 55 L 56 L 56 L Respiratory Rate 15 21 16 Blood Pressure Pulse Oximetry 96 99 96 02/26/18 09:00 02/26/18 09:04 02/26/18 09:15 Temperature Pulse Rate 57 L 57 L 56 L Respiratory Rate 23 12 24 Blood Pressure 144/77 H Pulse Oximetry 95 96 96 02/26/18 09:30 02/26/18 09:45 02/26/18 10:00 Temperature 99.5 F Pulse Rate 62 56 L 61 Respiratory Rate 21 20 16 Blood Pressure 132/73 Pulse Oximetry 96 95 94 L 02/26/18 10:04 02/26/18 10:15 02/26/18 10:30 Temperature Pulse Rate 55 L 56 L 54 L Respiratory Rate 15 Blood Pressure 132/73 Pulse Oximetry 95 95 95 02/26/18 10:45 02/26/18 11:00 02/26/18 11:15 Temperature 99.4 F Pulse Rate 57 L 54 L 54 L Respiratory Rate 23 14 20 Blood Pressure 135/83 Pulse Oximetry 96 95 93 L 02/26/18 11:24 02/26/18 11:30 02/26/18 11:45 Temperature Pulse Rate 54 L 54 L 55 L Respiratory Rate 18 18 19 Blood Pressure 135/83 Pulse Oximetry 97 96 96 02/26/18 12:00 02/26/18 12:04 02/26/18 12:15 Temperature Pulse Rate 56 L 53 L 55 L Respiratory Rate 24 26 H 25 H Blood Pressure 137/84 Pulse Oximetry 95 95 96 02/26/18 12:30 02/26/18 12:45 02/26/18 13:00 Temperature Pulse Rate 54 L 54 L 54 L Respiratory Rate 14 31 H 18 Blood Pressure Pulse Oximetry 95 95 96 02/26/18 13:04 02/26/18 13:12 02/26/18 13:15 Temperature Pulse Rate 55 L 67 52 L Respiratory Rate 17 15 25 H Blood Pressure 149/79 H Pulse Oximetry 96 100 02/26/18 13:30 02/26/18 13:45 02/26/18 14:00 Temperature Pulse Rate 55 L 59 L 61 Respiratory Rate 20 13 17 Blood Pressure Pulse Oximetry 95 96 95 02/26/18 14:04 02/26/18 14:15 02/26/18 14:30 Temperature Pulse Rate 63 64 58 L Respiratory Rate 23 17 17 Blood Pressure 145/77 H Pulse Oximetry 95 94 L 94 L 02/26/18 14:45 02/26/18 15:00 02/26/18 15:04 Temperature Pulse Rate 56 L 56 L 55 L Respiratory Rate 23 15 12 Blood Pressure 144/62 H Pulse Oximetry 94 L 93 L 93 L 02/26/18 16:00 Temperature Pulse Rate 57 L Respiratory Rate Blood Pressure Pulse Oximetry Intake & Output 02/25/18 02/26/18 02/26/18 18:59 06:59 18:59 Intake Total 100 / 100 105 / 105 1205 / 1205 Output Total 750 / 750 450 / 450 Balance -650 / -650 -345 / -345 1205 / 1205 Weight 57.3 kg 58.9 kg Intake: IV 100 / 100 105 / 105 1205 / 1205 NS Inj 1,000 ML @ 45 mls/hr IV. 1000 / 1000 CONT .[id number] SHASHANK Rx#: [id number] KCl 20 mEq Premix Inj 20 meq In 100 / 100 100 ml @ 50 mls/hr IV.SIG Q2H PRN Rx#:[id number] Keppra 1000 mg/100 mL Premix 100 / 100 100 ML @ 400 mls/hr IV.SIG ONCE ONE Rx#:[id number] Keppra Inj 500 MG In NS Inj 100 105 / 105 105 / 105 ML @ 400 mls/hr IV.SIG Q12H SHASHANK Rx#:[id number] Output: Urine 750 / 750 450 / 450 Other: # Voids 4 # Bowel Movements 0 Weight On Admission 57.3 kg Result Diagrams: 02/26/18 03:30 02/26/18 03:30 Objective Remarks: Narrative: General: Middle-aged man, calm, easily awakened and responsive. Head: Atraumatic, normal Neck: Supple, airway widely patent, no transmitted wheezes or obstructive noises Lungs: Comfortable respiratory pattern, no wheezes and good bilateral air movement. Heart: Distant tones, regular rate and rhythm, bradycardia. No JVD. Abdomen: Soft, nondistended, no guarding, no tenderness, bowel sounds are present. Inguinal region: Bilateral large inguinal hernias with right hernia containing intestine and left hernia containing large amount of intestine extending into scrotum. Bowel sounds present in hernia sac. Extremities: Musculature of the legs diminutive. Neuro: Alert, conversant, oriented x3. RADHA. EOMs intact. Shoulder shrug symmetrical. Left arm with 2-3/5 strength left leg with 4/5 strength, poor coordination persists. Right arm with 5/5 strength and normal coordination. Right leg with 5/5 strength. No DTRs in legs. Assessment and Plan - Problem List (1) Stroke, hemorrhagic Code(s): I61.9 - Nontraumatic intracerebral hemorrhage, unspecified Status: Acute (2) Pontine hemorrhage Code(s): I61.3 - Nontraumatic intracerebral hemorrhage in brain stem Status: Acute (3) COPD with acute exacerbation Code(s): J44.1 - Chronic obstructive pulmonary disease with (acute) exacerbation Status: Acute (4) Hypertensive urgency Code(s): I16.0 - Hypertensive urgency Status: Acute (5) Bilateral inguinal hernia Code(s): K40.20 - Bilateral inguinal hernia, without obstruction or gangrene, not specified as recurrent Status: Acute - Assessment and Plan Plan: Plan: Neurological -Maintain systolic blood pressure 140 - 160 with intravenous Cardene, now weaned off. -Watch airway control carefully -Neurosurgical evaluation ongoing -Check coagulation profile and platelet count -normal -Repeat CAT scan for sudden deterioration Cardiovascular -Hold patient's home beta-katiana due to bradycardia -Avoid hypotension Respiratory -Head of bed up 30 degrees until bronchospasm breaks -Albuterol bronchodilator inhalation therapy -Supplemental oxygen to maintain sat greater than 92% GI -N.p.o. -Swallow evaluation today -May need nasogastric tube -Watch I's and O's closely. Avoid overhydration Renal -Hold patient's oral antihypertensives and use short acting agents for now Hematology -Stable ID -Cover with Levaquin if COPD exacerbation recurs Prophylaxis -SCDs -Chemical DVT prophylaxis contraindicated because of acute bleed -Pepcid for GI ulcer prophylaxis Overall impression: This 57-year-old gentleman arrives in critical condition with a hypertensive hemorrhage in the farida. His initial care was further complicated by malignant hypertension and COPD exacerbation, now resolved. He remains critically ill and his condition is guarded at this time. He is at high risk for ongoing deterioration and requirement for intubation. Critical care time 38 minutes aside from procedures. (5) Bilateral inguinal hernia Qualifiers: Obstruction and gangrene presence: without obstruction or gangrene Recurrence : recurrent Qualified Code(s): K40.21 - Bilateral inguinal hernia, without obstruction or gangrene, recurrent
[2018-02-26] MEDS: hydrALAZINE HCl Inj 20 MG/ML Vial IV.PUSH PRN (17:13)
[2018-02-27] MEDS: Insulin NovoLOG Aspart Correctional Sugar Inj SQ SCH ×4 (00:19→18:19)
[2018-02-27] MEDS: Sod Chloride 0.9% Inj 1,000 ML IV.CONT SCH ×3 (00:19→21:49)
[2018-02-27] MEDS: hydrALAZINE HCl Inj 20 MG/ML Vial IV.PUSH PRN ×2 (01:43→22:24)
[2018-02-27] MEDS: Morphine Inj 4 MG/ML Vial IV.PUSH PRN ×6 (02:21→21:16)
[2018-02-27] MEDS: Chlorhexidine Gluconate 2% 1 Pack (2 Cloths) TOPICAL SCH (03:22)
[2018-02-27 08:00] LABS: Anion Gap 11 meq/L (5-15); Blood Urea Nitrogen 9 mg/dL (7-18); Carbon Dioxide 25.1 meq/L (21.0-32.0); Chloride 102 meq/L (98-107); Glomerular Filtration Rate Greater Than 89 mL/min (>89); Glucose,Random 81 mg/dL (74-106); Potassium 3.5 meq/L (3.5-5.1); Sodium 138 meq/L (136-145)
[2018-02-27] MEDS: Senna/Docusate Sodium 8.6/50 MG Tablet PO SCH ×2 (08:25→20:58)
[2018-02-27] MEDS: Pantoprazole Inj 40 MG Vial IV.PUSH SCH (08:26)
--- NOTE | 2018-02-27 11:01 | P.PNCC ---
Subjective Subjective Remarks/Hospital Course: This 57-year-old gentleman developed left-sided weakness and difficulty with speech. He presented as a stroke alert to [facility] with blood pressure 188/100, bradycardia at 52, and a CAT scan which reveals an acute pontine hemorrhage. He was transferred to the main campus or I met him on his arrival to the ICU. Blood pressure is 208/110. 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 He has spinal hardware in place but the extent of the injury is not available to us. He states that with rehabilitation he was walking again. Additionally, he is a heavy smoker and arrives with COPD exacerbation and severe bronchospasm. We have delivered 3 inhalation bronchodilator treatments back to back and his air movement is improved. 02/26: Bronchospasm has resolved using nebulizer treatments. Steroids not required. Neurologic exam largely unchanged. Blood pressure control acceptable in the range of [id number]. Ongoing workup to include swallow evaluation and physical therapy assessment. 02/27: Resting comfortably. Knows he is in the hospital. Not in any acute distress. Moving all 4 extremities. - Diagnosis (1) Stroke, hemorrhagic (2) Pontine hemorrhage (3) COPD with acute exacerbation (4) Hypertensive urgency (5) Bilateral inguinal hernia Objective Vital Signs / I&O: Vital Signs 02/26/18 10:45 02/26/18 11:00 02/26/18 11:15 Temperature 99.4 F Pulse Rate 57 L 54 L 54 L Respiratory Rate 23 14 20 Blood Pressure 135/83 Pulse Oximetry 96 95 93 L 02/26/18 11:24 02/26/18 11:30 02/26/18 11:45 Temperature Pulse Rate 54 L 54 L 55 L Respiratory Rate 18 18 19 Blood Pressure 135/83 Pulse Oximetry 97 96 96 02/26/18 12:00 02/26/18 12:04 02/26/18 12:15 Temperature Pulse Rate 56 L 53 L 55 L Respiratory Rate 24 26 H 25 H Blood Pressure 137/84 Pulse Oximetry 95 95 96 02/26/18 12:30 02/26/18 12:45 02/26/18 13:00 Temperature Pulse Rate 54 L 54 L 54 L Respiratory Rate 14 31 H 18 Blood Pressure Pulse Oximetry 95 95 96 02/26/18 13:04 02/26/18 13:12 02/26/18 13:15 Temperature Pulse Rate 55 L 67 52 L Respiratory Rate 17 15 25 H Blood Pressure 149/79 H Pulse Oximetry 96 100 02/26/18 13:30 02/26/18 13:45 02/26/18 14:00 Temperature Pulse Rate 55 L 59 L 61 Respiratory Rate 20 13 17 Blood Pressure Pulse Oximetry 95 96 95 02/26/18 14:04 02/26/18 14:15 02/26/18 14:30 Temperature Pulse Rate 63 64 58 L Respiratory Rate 23 17 17 Blood Pressure 145/77 H Pulse Oximetry 95 94 L 94 L 02/26/18 14:45 02/26/18 15:00 02/26/18 15:04 Temperature Pulse Rate 56 L 56 L 55 L Respiratory Rate 23 15 12 Blood Pressure 144/62 H Pulse Oximetry 94 L 93 L 93 L 02/26/18 15:15 02/26/18 15:30 02/26/18 15:45 Temperature Pulse Rate 55 L 58 L 55 L Respiratory Rate 14 25 H 19 Blood Pressure Pulse Oximetry 93 L 94 L 94 L 02/26/18 16:00 02/26/18 16:04 02/26/18 16:08 Temperature 98.3 F Pulse Rate 57 L 56 L 55 L Respiratory Rate 21 12 25 H Blood Pressure 180/77 H 153/79 H Pulse Oximetry 95 93 L 94 L 02/26/18 16:15 02/26/18 16:30 02/26/18 16:45 Temperature 98.1 F Pulse Rate 56 L 61 56 L Respiratory Rate 14 35 H 19 Blood Pressure Pulse Oximetry 96 95 95 02/26/18 17:00 02/26/18 17:04 02/26/18 17:08 Temperature Pulse Rate 62 61 61 Respiratory Rate 33 H 25 H 22 Blood Pressure 176/99 H 179/95 H Pulse Oximetry 94 L 94 L 95 02/26/18 17:15 02/26/18 17:27 02/26/18 17:30 Temperature Pulse Rate 54 L 75 83 Respiratory Rate 21 39 H Blood Pressure Pulse Oximetry 96 94 L 02/26/18 17:45 02/26/18 17:48 02/26/18 18:00 Temperature 98.1 F Pulse Rate 87 89 77 Respiratory Rate 39 H 32 H 18 Blood Pressure 138/80 138/80 Pulse Oximetry 91 L 92 L 94 L 02/26/18 18:04 02/26/18 18:15 02/26/18 18:30 Temperature Pulse Rate 76 73 77 Respiratory Rate 21 19 22 Blood Pressure 142/82 H Pulse Oximetry 94 L 94 L 94 L 02/26/18 18:45 02/26/18 19:00 02/26/18 19:04 Temperature Pulse Rate 65 66 64 Respiratory Rate 27 H 27 H 25 H Blood Pressure 153/73 H Pulse Oximetry 92 L 95 95 02/26/18 19:15 02/26/18 19:30 02/26/18 19:45 Temperature Pulse Rate 65 65 66 Respiratory Rate 27 H 15 16 Blood Pressure Pulse Oximetry 95 95 96 02/26/18 20:00 02/26/18 20:04 02/26/18 20:15 Temperature Pulse Rate 85 80 71 Respiratory Rate 36 H 31 H 18 Blood Pressure 152/88 H Pulse Oximetry 96 95 95 02/26/18 20:30 02/26/18 20:45 02/26/18 21:00 Temperature Pulse Rate 73 83 74 Respiratory Rate 20 37 H 34 H Blood Pressure Pulse Oximetry 96 94 L 96 02/26/18 21:01 02/26/18 21:04 02/26/18 21:14 Temperature Pulse Rate 74 80 Respiratory Rate 42 H 30 H Blood Pressure 170/81 H 160/88 H Pulse Oximetry 98 100 100 02/26/18 21:15 02/26/18 21:30 02/26/18 21:45 Temperature Pulse Rate 77 89 88 Respiratory Rate 27 H 34 H 32 H Blood Pressure Pulse Oximetry 97 94 L 94 L 02/26/18 22:00 02/26/18 22:04 02/26/18 22:15 Temperature 98.9 F Pulse Rate 80 96 H 84 Respiratory Rate 23 31 H 24 Blood Pressure 159/75 H Pulse Oximetry 95 95 95 02/26/18 22:30 02/26/18 22:45 02/26/18 23:00 Temperature Pulse Rate 82 84 78 Respiratory Rate 28 H 15 17 Blood Pressure Pulse Oximetry 95 95 94 L 02/26/18 23:04 02/26/18 23:15 02/26/18 23:30 Temperature Pulse Rate 78 79 83 Respiratory Rate 13 13 24 Blood Pressure 155/81 H Pulse Oximetry 94 L 95 95 02/26/18 23:45 02/27/18 00:00 02/27/18 00:04 Temperature 99.2 F Pulse Rate 78 77 78 Respiratory Rate 14 14 14 Blood Pressure 158/87 H Pulse Oximetry 94 L 95 95 02/27/18 00:15 02/27/18 00:30 02/27/18 00:45 Temperature Pulse Rate 81 77 77 Respiratory Rate 17 14 14 Blood Pressure Pulse Oximetry 96 96 96 02/27/18 01:00 02/27/18 01:04 02/27/18 01:15 Temperature Pulse Rate 81 78 76 Respiratory Rate 17 14 15 Blood Pressure 170/88 H Pulse Oximetry 96 97 97 02/27/18 01:30 02/27/18 01:39 02/27/18 01:45 Temperature Pulse Rate 74 75 79 Respiratory Rate 14 15 15 Blood Pressure 170/88 H Pulse Oximetry 97 98 98 02/27/18 02:00 02/27/18 02:04 02/27/18 02:15 Temperature Pulse Rate 101 H 100 H 112 H Respiratory Rate 20 22 30 H Blood Pressure 173/75 H Pulse Oximetry 96 94 L 92 L 02/27/18 02:25 02/27/18 02:30 02/27/18 02:45 Temperature Pulse Rate 93 H 92 H 90 Respiratory Rate 44 H 90 H 18 Blood Pressure 144/67 H Pulse Oximetry 94 L 93 L 93 L 02/27/18 03:00 02/27/18 03:04 02/27/18 03:15 Temperature Pulse Rate 88 87 85 Respiratory Rate 21 26 H 27 H Blood Pressure 137/65 Pulse Oximetry 94 L 94 L 93 L 02/27/18 03:30 02/27/18 03:45 02/27/18 04:00 Temperature Pulse Rate 85 86 88 Respiratory Rate 26 H 23 25 H Blood Pressure Pulse Oximetry 93 L 94 L 94 L 02/27/18 04:04 02/27/18 04:15 02/27/18 04:30 Temperature Pulse Rate 89 88 93 H Respiratory Rate 16 19 18 Blood Pressure 149/70 H Pulse Oximetry 93 L 94 L 94 L 02/27/18 04:45 02/27/18 05:00 02/27/18 05:04 Temperature Pulse Rate 90 96 H 94 H Respiratory Rate 18 22 20 Blood Pressure 152/81 H Pulse Oximetry 93 L 93 L 93 L 02/27/18 05:15 02/27/18 05:30 02/27/18 05:45 Temperature Pulse Rate 91 H 85 85 Respiratory Rate 23 34 H 25 H Blood Pressure Pulse Oximetry 93 L 94 L 95 02/27/18 06:00 02/27/18 06:04 02/27/18 06:15 Temperature Pulse Rate 86 84 83 Respiratory Rate 33 H 22 38 H Blood Pressure 142/73 H Pulse Oximetry 94 L 94 L 94 L 02/27/18 06:30 02/27/18 06:45 02/27/18 07:00 Temperature Pulse Rate 87 84 84 Respiratory Rate 44 H 111 H 16 Blood Pressure Pulse Oximetry 94 L 94 L 95 02/27/18 07:04 02/27/18 07:15 02/27/18 07:30 Temperature Pulse Rate 85 84 98 H Respiratory Rate 16 16 27 H Blood Pressure 152/72 H Pulse Oximetry 94 L 95 95 02/27/18 07:45 02/27/18 08:00 02/27/18 08:04 Temperature 98.4 F Pulse Rate 92 H 90 89 Respiratory Rate 18 25 H 17 Blood Pressure 161/83 H Pulse Oximetry 94 L 95 93 L 02/27/18 08:15 02/27/18 08:30 02/27/18 08:45 Temperature Pulse Rate 88 90 83 Respiratory Rate 21 18 26 H Blood Pressure Pulse Oximetry 92 L 90 L 94 L 02/27/18 09:00 02/27/18 09:04 02/27/18 09:15 Temperature Pulse Rate 83 86 86 Respiratory Rate 29 H 32 H 24 Blood Pressure 173/82 H Pulse Oximetry 95 95 95 02/27/18 09:30 02/27/18 09:45 Temperature Pulse Rate 96 H 90 Respiratory Rate 28 H 90 H Blood Pressure Pulse Oximetry 94 L 94 L Intake & Output 02/26/18 02/27/18 02/27/18 18:59 06:59 18:59 Intake Total 1445 / 1445 525 / 525 Output Total 500 / 500 700 / 700 Balance 945 / 945 -175 / -175 Weight 54.5 kg Intake: IV 1205 / 1205 105 / 105 NS Inj 1,000 ML @ 45 mls/hr IV. 1000 / 1000 CONT .[id number] SHASHANK Rx#: [id number] KCl 20 mEq Premix Inj 20 meq In 100 / 100 100 ml @ 50 mls/hr IV.SIG Q2H PRN Rx#:[id number] Keppra Inj 500 MG In NS Inj 100 105 / 105 105 / 105 ML @ 400 mls/hr IV.SIG Q12H SHASHANK Rx#:[id number] Oral 240 / 240 420 / 420 Output: Urine 500 / 500 200 / 200 Urine Amount (Catheter) 500 / 500 Condom 500 / 500 Other: # Voids 4 4 # Bowel Movements 0 Result Diagrams: 02/26/18 03:30 02/27/18 07:01 Objective Remarks: Narrative: General: Middle-aged man, calm, easily awakened and responsive. Head: Atraumatic, normal Neck: Supple, airway widely patent, no transmitted wheezes or obstructive noises Lungs: Comfortable respiratory pattern, no wheezes and good bilateral air movement. Heart: Distant tones, regular rate and rhythm, bradycardia. No JVD. Abdomen: Soft, nondistended, no guarding, no tenderness, bowel sounds are present. Inguinal region: Bilateral large inguinal hernias with right hernia containing intestine and left hernia containing large amount of intestine extending into scrotum. Bowel sounds present in hernia sac. Extremities: Musculature of the legs diminutive. Neuro: Alert, conversant, oriented x3. RADHA. EOMs intact. Shoulder shrug symmetrical. Left arm with 2-3/5 strength left leg with 4/5 strength, poor coordination persists. Right arm with 5/5 strength and normal coordination. Right leg with 5/5 strength. No DTRs in legs. Assessment and Plan - Problem List (1) Stroke, hemorrhagic Code(s): I61.9 - Nontraumatic intracerebral hemorrhage, unspecified Status: Acute (2) Pontine hemorrhage Code(s): I61.3 - Nontraumatic intracerebral hemorrhage in brain stem Status: Acute (3) COPD with acute exacerbation Code(s): J44.1 - Chronic obstructive pulmonary disease with (acute) exacerbation Status: Acute (4) Hypertensive urgency Code(s): I16.0 - Hypertensive urgency Status: Acute (5) Bilateral inguinal hernia Code(s): K40.20 - Bilateral inguinal hernia, without obstruction or gangrene, not specified as recurrent Status: Acute - Assessment and Plan Plan: Plan: Neurological -Maintain systolic blood pressure 140 - 160 with intravenous Cardene, now weaned off. -Watch airway control carefully -Neurosurgical evaluation ongoing -Check coagulation profile and platelet count -normal -Repeat CAT scan for sudden deterioration Cardiovascular -Hold patient's home beta-katiana due to bradycardia -Avoid hypotension Respiratory -Head of bed up 30 degrees until bronchospasm breaks -Albuterol bronchodilator inhalation therapy -Supplemental oxygen to maintain sat greater than 92% GI -Swallow evaluation, advance PO if tolerated per Speech therapist recommendations. -May need nasogastric tube -Watch I's and O's closely. Avoid overhydration Renal -Hold patient's oral antihypertensives and use short acting agents for now Hematology -Stable ID -Cover with Levaquin if COPD exacerbation recurs Prophylaxis -SCDs -Chemical DVT prophylaxis contraindicated because of acute bleed -Pepcid for GI ulcer prophylaxis Overall impression: This 57-year-old gentleman arrives in critical condition with a hypertensive hemorrhage in the farida. His initial care was further complicated by malignant hypertension and COPD exacerbation, now resolved. He remains critically ill and his condition is guarded at this time. He is at high risk for ongoing deterioration and requirement for intubation. (5) Bilateral inguinal hernia Qualifiers: Obstruction and gangrene presence: without obstruction or gangrene Recurrence : recurrent Qualified Code(s): K40.21 - Bilateral inguinal hernia, without obstruction or gangrene, recurrent
--- NOTE | 2018-02-27 18:40 | P.PNNS ---
Subjective Interval history: The patient has remained stable overnight. He has no complaints except for weakness of his left upper and left lower extremity. He is sitting up in a chair as I enter the room. He denies any headaches. Physical Exam Vital signs: Vital Signs 02/26/18 18:45 02/26/18 19:00 02/26/18 19:04 Temperature Pulse Rate 65 66 64 Respiratory Rate 27 H 27 H 25 H Blood Pressure 153/73 H Pulse Oximetry 92 L 95 95 02/26/18 19:15 02/26/18 19:30 02/26/18 19:45 Temperature Pulse Rate 65 65 66 Respiratory Rate 27 H 15 16 Blood Pressure Pulse Oximetry 95 95 96 02/26/18 20:00 02/26/18 20:04 02/26/18 20:15 Temperature Pulse Rate 85 80 71 Respiratory Rate 36 H 31 H 18 Blood Pressure 152/88 H Pulse Oximetry 96 95 95 02/26/18 20:30 02/26/18 20:45 02/26/18 21:00 Temperature Pulse Rate 73 83 74 Respiratory Rate 20 37 H 34 H Blood Pressure Pulse Oximetry 96 94 L 96 02/26/18 21:01 02/26/18 21:04 02/26/18 21:14 Temperature Pulse Rate 74 80 Respiratory Rate 42 H 30 H Blood Pressure 170/81 H 160/88 H Pulse Oximetry 98 100 100 02/26/18 21:15 02/26/18 21:30 02/26/18 21:45 Temperature Pulse Rate 77 89 88 Respiratory Rate 27 H 34 H 32 H Blood Pressure Pulse Oximetry 97 94 L 94 L 02/26/18 22:00 02/26/18 22:04 02/26/18 22:15 Temperature 98.9 F Pulse Rate 80 96 H 84 Respiratory Rate 23 31 H 24 Blood Pressure 159/75 H Pulse Oximetry 95 95 95 02/26/18 22:30 02/26/18 22:45 02/26/18 23:00 Temperature Pulse Rate 82 84 78 Respiratory Rate 28 H 15 17 Blood Pressure Pulse Oximetry 95 95 94 L 02/26/18 23:04 02/26/18 23:15 02/26/18 23:30 Temperature Pulse Rate 78 79 83 Respiratory Rate 13 13 24 Blood Pressure 155/81 H Pulse Oximetry 94 L 95 95 02/26/18 23:45 02/27/18 00:00 02/27/18 00:04 Temperature 99.2 F Pulse Rate 78 77 78 Respiratory Rate 14 14 14 Blood Pressure 158/87 H Pulse Oximetry 94 L 95 95 02/27/18 00:15 02/27/18 00:30 02/27/18 00:45 Temperature Pulse Rate 81 77 77 Respiratory Rate 17 14 14 Blood Pressure Pulse Oximetry 96 96 96 02/27/18 01:00 02/27/18 01:04 02/27/18 01:15 Temperature Pulse Rate 81 78 76 Respiratory Rate 17 14 15 Blood Pressure 170/88 H Pulse Oximetry 96 97 97 02/27/18 01:30 02/27/18 01:39 02/27/18 01:45 Temperature Pulse Rate 74 75 79 Respiratory Rate 14 15 15 Blood Pressure 170/88 H Pulse Oximetry 97 98 98 02/27/18 02:00 02/27/18 02:04 02/27/18 02:15 Temperature Pulse Rate 101 H 100 H 112 H Respiratory Rate 20 22 30 H Blood Pressure 173/75 H Pulse Oximetry 96 94 L 92 L 02/27/18 02:25 02/27/18 02:30 02/27/18 02:45 Temperature Pulse Rate 93 H 92 H 90 Respiratory Rate 44 H 90 H 18 Blood Pressure 144/67 H Pulse Oximetry 94 L 93 L 93 L 02/27/18 03:00 02/27/18 03:04 02/27/18 03:15 Temperature Pulse Rate 88 87 85 Respiratory Rate 21 26 H 27 H Blood Pressure 137/65 Pulse Oximetry 94 L 94 L 93 L 02/27/18 03:30 02/27/18 03:45 02/27/18 04:00 Temperature Pulse Rate 85 86 88 Respiratory Rate 26 H 23 25 H Blood Pressure Pulse Oximetry 93 L 94 L 94 L 02/27/18 04:04 02/27/18 04:15 02/27/18 04:30 Temperature Pulse Rate 89 88 93 H Respiratory Rate 16 19 18 Blood Pressure 149/70 H Pulse Oximetry 93 L 94 L 94 L 02/27/18 04:45 02/27/18 05:00 02/27/18 05:04 Temperature Pulse Rate 90 96 H 94 H Respiratory Rate 18 22 20 Blood Pressure 152/81 H Pulse Oximetry 93 L 93 L 93 L 02/27/18 05:15 02/27/18 05:30 02/27/18 05:45 Temperature Pulse Rate 91 H 85 85 Respiratory Rate 23 34 H 25 H Blood Pressure Pulse Oximetry 93 L 94 L 95 02/27/18 06:00 02/27/18 06:04 02/27/18 06:15 Temperature Pulse Rate 86 84 83 Respiratory Rate 33 H 22 38 H Blood Pressure 142/73 H Pulse Oximetry 94 L 94 L 94 L 02/27/18 06:30 02/27/18 06:45 02/27/18 07:00 Temperature Pulse Rate 87 84 84 Respiratory Rate 44 H 111 H 16 Blood Pressure Pulse Oximetry 94 L 94 L 95 02/27/18 07:04 02/27/18 07:15 02/27/18 07:30 Temperature Pulse Rate 85 84 98 H Respiratory Rate 16 16 27 H Blood Pressure 152/72 H Pulse Oximetry 94 L 95 95 02/27/18 07:45 02/27/18 08:00 02/27/18 08:04 Temperature 98.4 F Pulse Rate 92 H 90 89 Respiratory Rate 18 25 H 17 Blood Pressure 161/83 H Pulse Oximetry 94 L 95 93 L 02/27/18 08:15 02/27/18 08:30 02/27/18 08:45 Temperature Pulse Rate 88 90 83 Respiratory Rate 21 18 26 H Blood Pressure Pulse Oximetry 92 L 90 L 94 L 02/27/18 09:00 02/27/18 09:04 02/27/18 09:15 Temperature Pulse Rate 83 86 86 Respiratory Rate 29 H 32 H 24 Blood Pressure 173/82 H Pulse Oximetry 95 95 95 02/27/18 09:30 02/27/18 09:45 02/27/18 10:00 Temperature Pulse Rate 96 H 90 80 Respiratory Rate 28 H 90 H 75 H Blood Pressure Pulse Oximetry 94 L 94 L 94 L 02/27/18 10:04 02/27/18 10:15 02/27/18 10:30 Temperature Pulse Rate 82 82 92 H Respiratory Rate 90 H 85 H 16 Blood Pressure 146/82 H Pulse Oximetry 93 L 93 L 93 L 02/27/18 10:31 02/27/18 10:36 02/27/18 10:45 Temperature Pulse Rate 91 H 87 Respiratory Rate Blood Pressure 133/84 Pulse Oximetry 92 L 93 L 02/27/18 11:00 02/27/18 11:04 02/27/18 11:15 Temperature Pulse Rate 84 83 82 Respiratory Rate Blood Pressure 132/69 Pulse Oximetry 94 L 93 L 94 L 02/27/18 11:30 02/27/18 11:45 02/27/18 12:00 Temperature 100.1 F H Pulse Rate 83 84 81 Respiratory Rate 14 Blood Pressure Pulse Oximetry 94 L 94 L 94 L 02/27/18 12:04 02/27/18 12:15 02/27/18 12:30 Temperature Pulse Rate 83 79 75 Respiratory Rate Blood Pressure 130/66 Pulse Oximetry 93 L 93 L 93 L 02/27/18 12:45 02/27/18 13:00 02/27/18 13:04 Temperature Pulse Rate 78 76 80 Respiratory Rate 94 H 57 H Blood Pressure 149/78 H Pulse Oximetry 93 L 94 L 93 L 02/27/18 13:15 02/27/18 13:30 02/27/18 13:45 Temperature Pulse Rate 82 91 H 78 Respiratory Rate 65 H 28 H 15 Blood Pressure Pulse Oximetry 94 L 94 L 94 L 02/27/18 14:00 02/27/18 14:04 02/27/18 14:15 Temperature Pulse Rate 79 79 79 Respiratory Rate 16 16 16 Blood Pressure 158/91 H Pulse Oximetry 93 L 93 L 93 L 02/27/18 14:30 02/27/18 14:45 02/27/18 15:00 Temperature Pulse Rate 80 81 79 Respiratory Rate 23 17 23 Blood Pressure Pulse Oximetry 95 93 L 94 L 02/27/18 15:04 02/27/18 15:15 02/27/18 15:30 Temperature Pulse Rate 82 79 80 Respiratory Rate 32 H 20 18 Blood Pressure 161/82 H Pulse Oximetry 94 L 94 L 93 L 02/27/18 15:45 02/27/18 15:57 02/27/18 16:00 Temperature 99.7 F H Pulse Rate 81 80 76 Respiratory Rate 29 H 18 18 Blood Pressure Pulse Oximetry 93 L 98 02/27/18 16:04 02/27/18 16:15 02/27/18 16:30 Temperature Pulse Rate 77 84 83 Respiratory Rate 38 H 25 H 24 Blood Pressure 163/84 H Pulse Oximetry 99 94 L 94 L 02/27/18 16:45 02/27/18 17:00 02/27/18 17:04 Temperature Pulse Rate 88 90 86 Respiratory Rate 24 44 H 33 H Blood Pressure 156/85 H Pulse Oximetry 92 L 93 L 92 L 02/27/18 17:15 02/27/18 17:30 02/27/18 17:45 Temperature Pulse Rate 90 90 86 Respiratory Rate 39 H 34 H 25 H Blood Pressure Pulse Oximetry 94 L 93 L 93 L 02/27/18 18:00 02/27/18 18:04 Temperature Pulse Rate 89 77 Respiratory Rate 32 H 21 Blood Pressure 163/91 H Pulse Oximetry 92 L 93 L Intake & Output 02/26/18 02/27/18 02/27/18 18:59 06:59 18:59 Intake Total 1445 / 1445 525 / 525 330 / 330 Output Total 500 / 500 700 / 700 450 / 450 Balance 945 / 945 -175 / -175 -120 / -120 Weight 54.5 kg Intake: IV 1205 / 1205 105 / 105 105 / 105 NS Inj 1,000 ML @ 45 mls/hr IV. 1000 / 1000 CONT .[id number] SHASHANK Rx#: [id number] KCl 20 mEq Premix Inj 20 meq In 100 / 100 100 ml @ 50 mls/hr IV.SIG Q2H PRN Rx#:[id number] Keppra Inj 500 MG In NS Inj 100 105 / 105 105 / 105 105 / 105 ML @ 400 mls/hr IV.SIG Q12H SHASHANK Rx#:[id number] Oral 240 / 240 420 / 420 225 / 225 Output: Urine 500 / 500 200 / 200 450 / 450 Urine Amount (Catheter) 500 / 500 Condom 500 / 500 Other: # Voids 4 4 # Bowel Movements 0 - Routine Neurological Exam The patient is sitting up in a chair as I enter the room. On neurological examination, mental status testing finds him to be awake and alert. He is oriented by 3. Cognitive functions grossly intact. His speech is fluent. Cranial nerve testing 2 through 12 is grossly intact with a very subtle left central facial paresis. Power testing reveals a left hemiparesis arm greater than leg. There are no acute sensory deficits. He apparently has ambulated several steps. - Urinary Catheter Management Condom Cath placed during this visit: no Reason for continuing: Not indwelling catheter Assessment and Plan - Plan February 26, 2018 From a neurosurgical perspective the patient is stable. His blood pressure appears to be fairly well controlled. I have discussed the results of the imaging with the patient and explained to him that he has suffered a stroke the cause of which most likely is uncontrolled hypertension. At this point certainly conservative neurosurgical approach is warranted. The patient will require an aggressive course of post stroke rehabilitation. Neurosurgery will follow. February 27, 2018 The patient remained stable neurologically and his blood pressure appears to be better controlled. At this point the patient requires an aggressive course of post stroke rehabilitation. There is no indication at this point for further neurosurgical evaluation or treatment in the conservative neurosurgical approach is warranted. I discussed the case with critical care. Neurosurgery will sign off. Please reconsult as needed.
[2018-02-28] MEDS: Labetalol HCl Inj 100 MG/20 ML Vial IV.PUSH PRN ×2 (00:28→06:15)
[2018-02-28] MEDS: Insulin NovoLOG Aspart Correctional Sugar Inj SQ SCH ×3 (00:53→12:05)
[2018-02-28] MEDS: Chlorhexidine Gluconate 2% 1 Pack (2 Cloths) TOPICAL SCH (03:22)
[2018-02-28] MEDS: Morphine Inj 4 MG/ML Vial IV.PUSH PRN ×4 (03:50→21:09)
[2018-02-28 06:56] LABS: Anion Gap 8 meq/L (5-15); Blood Urea Nitrogen 11 mg/dL (7-18); Calcium 8.5 mg/dL (8.5-10.1); Carbon Dioxide 27.4 meq/L (21.0-32.0); Chloride 103 meq/L (98-107); Glomerular Filtration Rate Greater Than 89 mL/min (>89); Glucose,Random 113 mg/dL (74-106); Potassium 3.6 meq/L (3.5-5.1); Sodium 138 meq/L (136-145)
[2018-02-28] MEDS: Senna/Docusate Sodium 8.6/50 MG Tablet PO SCH ×2 (09:32→21:09)
[2018-02-28] MEDS: Pantoprazole Inj 40 MG Vial IV.PUSH SCH (09:32)
[2018-02-28] MEDS: Sod Chloride 0.9% Inj 1,000 ML IV.CONT SCH ×2 (11:50→22:28)
--- NOTE | 2018-02-28 15:46 | P.PNIM ---
Subjective Interval history: Follow-up for pontine hemorrhagic stroke. Patient is currently resting in bed. He is following commands. Denies any acute concerns. Physical Exam Vital signs: Last Vital Signs Temp 98.3 F 02/28/18 12:00 Pulse 83 02/28/18 15:00 Resp 20 02/28/18 15:00 BP 142/78 H 02/28/18 14:11 Pulse Ox 92 L 02/28/18 15:00 Intake & Output 02/26/18 02/27/18 02/28/18 03/01/18 06:59 06:59 06:59 06:59 Intake Total 205 / 205 1969 / 1969 675 / 675 1105 / 1105 Output Total 1200 / 1200 1200 / 1200 1125 / 1125 Balance -995 / -995 770 / 770 -450 / -450 1105 / 1105 Weight 58.9 kg 54.5 kg 55.1 kg GENERAL: Alert, NAD. SKIN: Warm and dry. HEAD: Normocephalic. EYES: No scleral icterus. No injection or drainage. NECK: Supple, trachea midline. No JVD or lymphadenopathy. CARDIOVASCULAR: Regular rate and rhythm without murmurs, gallops, or rubs. RESPIRATORY: Breath sounds equal bilaterally. No accessory muscle use. GASTROINTESTINAL: Abdomen soft, non-tender, nondistended. MUSCULOSKELETAL: No cyanosis, or edema. Neurological: 2+ strength on left-sided upper and lower extremities. BACK: Nontender without obvious deformity. No CVA tenderness. Urinary Catheter Management Condom: Cath placed during this visit: no Results Labs CBC & Chem 7: 02/26/18 03:30 02/28/18 06:05 Imaging Imaging: Head MRI 02/25/18 00:00 CONCLUSION: 1. There is acute hemorrhage in right farida without any significant mass effect. Etiology for this hemorrhage is not certain could be a hemorrhagic stroke. Head MRA 02/25/18 00:00 CONCLUSION: 1. Negative MRA [facility] ([place] [facility] [place]) non contrast. Chest X-Ray 02/25/18 10:07 CONCLUSION: Cardiomegaly without evidence of congestive heart failure. Head CT 02/25/18 10:07 CONCLUSION: 1. Acute pontine hemorrhage. No evidence of hydrocephalus or effacement of the fourth ventricle. Report was called by [Dr. Nicolas to Dr. Ramires at 10:27 AM. ] Head CT 02/26/18 06:00 CONCLUSION: 1. Stable appearance of pontine hemorrhage without evidence of mass effect or effacement of the fourth ventricle. . Assessment and Plan (1) Stroke, hemorrhagic: Code(s): I61.9 - Nontraumatic intracerebral hemorrhage, unspecified Status: Acute (2) Pontine hemorrhage: Code(s): I61.3 - Nontraumatic intracerebral hemorrhage in brain stem Status: Acute (3) COPD with acute exacerbation: Code(s): J44.1 - Chronic obstructive pulmonary disease with (acute) exacerbation Status: Acute (4) Hypertensive urgency: Code(s): I16.0 - Hypertensive urgency Status: Acute (5) Bilateral inguinal hernia: Code(s): K40.20 - Bilateral inguinal hernia, without obstruction or gangrene, not specified as recurrent Status: Acute Plan Mr. Garcia is a pleasant 57-year-old male with a history of COPD, hypertension, dyslipidemia, tobacco use who presented to the emergency department on 02/25/2018 as a stroke alert. He experienced slurred speech with right-sided facial droop as well as left-sided upper and lower extremity weakness. CT head showed pontine hemorrhagic stroke. Acute pontine hemorrhagic stroke Patient was initially managed by critical care. Neurosurgery was consulted. Blood pressure was controlled. Neurosurgery signed off on 02/27/2018. Continue Keppra 500 mg twice daily. Hypertension Currently NOT on nicardipine drip. BP is 136-142 systolic. GOAL BP < 130/80. We will switch to amlodipine 5 mg as well as losartan 25 mg daily. If blood pressure remains within normal range, will consider discontinuing losartan. Full code. SCDs. Pharmacological DVT prophylaxis contraindicated due to hemorrhagic stroke. Progress Note: Quality VTE Deep Vein Thrombosis/Pulmonary Embolism Present on Admission: No _ (1) Bilateral inguinal hernia Qualifiers: Obstruction and gangrene presence: without obstruction or gangrene Recurrence : recurrent Qualified Code(s): K40.21 - Bilateral inguinal hernia, without obstruction or gangrene, recurrent
[2018-02-28] MEDS: amLODIPine 5 MG Tablet PO SCH (16:36)
[2018-03-01] MEDS: Acetaminophen 325 MG Tablet PO PRN ×2 (06:43→16:48)
[2018-03-01 07:37] LABS: Anion Gap 4 meq/L (5-15); Blood Urea Nitrogen 15 mg/dL (7-18); Calcium 8.7 mg/dL (8.5-10.1); Carbon Dioxide 25.8 meq/L (21.0-32.0); Chloride 105 meq/L (98-107); Glomerular Filtration Rate Greater Than 89 mL/min (>89); Glucose,Random 90 mg/dL (74-106); Sodium 135 meq/L (136-145)
[2018-03-01 07:40] LABS: Potassium 5.3 meq/L (3.5-5.1)
[2018-03-01] MEDS: amLODIPine 5 MG Tablet PO SCH ×2 (08:03→10:29)
[2018-03-01] MEDS: Senna/Docusate Sodium 8.6/50 MG Tablet PO SCH ×2 (08:03→20:06)
[2018-03-01] MEDS: Pantoprazole Inj 40 MG Vial IV.PUSH SCH (08:03)
[2018-03-01] MEDS ORDERED: amLODIPine 5 MG Tablet PO SCH (08:23)
--- NOTE | 2018-03-01 08:53 | P.PNIM ---
Subjective Interval history: Follow-up for pontine hemorrhagic stroke. Patient is doing well. No acute concerns. He is on 2L of O2 via NC. Had a low grade fever last night (100.7F). Physical Exam Vital signs: Last Vital Signs Temp 100.7 F H 03/01/18 04:00 Pulse 71 03/01/18 06:00 Resp 14 03/01/18 06:00 BP 166/82 H 03/01/18 03:00 Pulse Ox 95 03/01/18 06:00 Intake & Output 02/27/18 02/28/18 03/01/18 03/02/18 06:59 06:59 06:59 06:59 Intake Total 1970 / 1970 675 / 675 1410 / 1410 Output Total 1200 / 1200 1125 / 1125 975 / 975 Balance 770 / 770 -450 / -450 435 / 435 Weight 54.5 kg 55.1 kg 55.1 kg 62.3 kg GENERAL: Alert, NAD. SKIN: Warm and dry. HEAD: Normocephalic. EYES: No scleral icterus. No injection or drainage. NECK: Supple, trachea midline. No JVD or lymphadenopathy. CARDIOVASCULAR: Regular rate and rhythm without murmurs, gallops, or rubs. RESPIRATORY: Moderate air entry. Breath sounds equal bilaterally. No accessory muscle use. GASTROINTESTINAL: Abdomen soft, non-tender, nondistended. MUSCULOSKELETAL: No cyanosis, or edema. 3/5 strength on left upper and lower ext. BACK: Nontender without obvious deformity. No CVA tenderness. Urinary Catheter Management Condom: Cath placed during this visit: no Results Labs CBC & Chem 7: 02/26/18 03:30 03/01/18 09:00 Assessment and Plan (1) Stroke, hemorrhagic: Code(s): I61.9 - Nontraumatic intracerebral hemorrhage, unspecified Status: Acute (2) Pontine hemorrhage: Code(s): I61.3 - Nontraumatic intracerebral hemorrhage in brain stem Status: Acute (3) COPD with acute exacerbation: Code(s): J44.1 - Chronic obstructive pulmonary disease with (acute) exacerbation Status: Acute (4) Hypertensive urgency: Code(s): I16.0 - Hypertensive urgency Status: Acute (5) Bilateral inguinal hernia: Code(s): K40.20 - Bilateral inguinal hernia, without obstruction or gangrene, not specified as recurrent Status: Acute Plan Mr. Garcia is a pleasant 57-year-old male with a history of COPD, hypertension, dyslipidemia, tobacco use who presented to the emergency department on 02/25/2018 as a stroke alert. He experienced slurred speech with right-sided facial droop as well as left-sided upper and lower extremity weakness. CT head showed pontine hemorrhagic stroke. Acute pontine hemorrhagic stroke Patient was initially managed by critical care. Neurosurgery was consulted. Blood pressure was controlled. Neurosurgery signed off on 02/27/2018. Continue Keppra 500 mg twice daily. Hypertension Currently normotensive GOAL BP < 130/80. Continue Amlodipine 5mg Qday only. Will consider Losartan if needed. Perihilar pulmonary vascular congestion -CXR shows perihilar infiltrates. -Patient is not coughing. Has had low grade fever. -Will obtain CBC. If fever is persistent and we notice leukocytosis, we will consider empiric coverage. -Check UA as well. Transfer patient to med-surg floor when bed available. Full code. SCDs. Pharmacological DVT prophylaxis contraindicated due to hemorrhagic stroke. Progress Note: Quality VTE Deep Vein Thrombosis/Pulmonary Embolism Present on Admission: No _ (1) Bilateral inguinal hernia Qualifiers: Obstruction and gangrene presence: without obstruction or gangrene Recurrence : recurrent Qualified Code(s): K40.21 - Bilateral inguinal hernia, without obstruction or gangrene, recurrent
[2018-03-01] MEDS ORDERED: amLODIPine 10 MG Tablet PO SCH (09:00)
--- NOTE | 2018-03-01 09:27 | XR ---
EXAM DATE: 03/01/2018 9:23 AM EST AGE/SEX: 57 years / Male INDICATIONS: Congestion. CLINICAL DATA: This is the patient's subsequent encounter. Patient reports that signs and symptoms h ave been present for 2 days and indicates a pain score of 0/10. MEDICAL/SURGICAL HISTORY: None. None. COMPARISON: [facility], CHEST 1V SINGLE AP, 02/25/2018. . FINDINGS: Mild perihilar infiltrates are noted consistent with possible mild pulmonary vascular congestion. Cli nical correlation is recommended. The heart is stable. Hardware is noted within the lumbar spine CONCLUSION: Mild perihilar infiltrates are noted consistent with possible mild pulmonary vascular congestion. Cli nical correlation is recommended. Electronically signed by: Dany Cagle MD Board Certified Radiologist 03/01/2018 9:25 AM EST
[2018-03-01] MEDS: Sod Chloride 0.9% Inj 1,000 ML IV.CONT SCH (14:17)
[2018-03-01] MEDS: Morphine Inj 4 MG/ML Vial IV.PUSH PRN ×3 (14:18→22:42)
[2018-03-01 16:19] LABS: Baso # (Auto) 0.1 th/mm3 (0.0-0.2); Baso % (Auto) 1.1 % (0.0-2.0); Eos # (Auto) 0.3 th/mm3 (0.0-0.4); Eos % (Auto) 2.3 % (0.0-4.0); Hemoglobin 11.4 gm/dL (13.0-17.0); Mean Corpuscular HGB Conc 32.6 % (32.0-36.0); Mean Corpuscular Hemoglobin 28.2 pg (27.0-34.0); Mean Corpuscular Volume 86.3 fL (80.0-100.0); Mean Platelet Volume 8.6 fL (7.0-11.0); Mono # (Auto) 1.3 th/mm3 (0.0-0.9); Mono % (Auto) 11.6 % (0.0-8.0); Neut # (Auto) 8.5 th/mm3 (1.8-7.7); Platelet Count 293 th/mm3 (150-450); Red Blood Count 4.06 mil/mm3 (4.50-5.90); White Blood Count 11.2 th/mm3 (4.0-11.0)
[2018-03-01 21:44] LABS: Amorphous Sediment,Urine Occasional /hpf; Bacteria,Urine Rare /hpf; Bilirubin,Urine Negative (Negative); Clarity,Urine Hazy (Clear); Color,Urine Yellow (Yellw/Straw); Glucose,Urine (UA) Negative (Negative); Leukocyte Esterase,Urine Negative (Negative); Mucus,Urine Few /lpf (Occasional); Nitrite,Urine Negative (Negative); Specific Gravity,Urine 1.021 (1.002-1.035); Squamous Epithelial Cell,Urine 1 /hpf (0-5)
[2018-03-02] MEDS: Sod Chloride 0.9% Inj 1,000 ML IV.CONT SCH ×4 (02:11→21:22)
[2018-03-02] MEDS: Morphine Inj 4 MG/ML Vial IV.PUSH PRN ×6 (02:11→22:50)
[2018-03-02 07:16] LABS: Baso # (Auto) 0.1 th/mm3 (0.0-0.2); Baso % (Auto) 1.1 % (0.0-2.0); Eos # (Auto) 0.7 th/mm3 (0.0-0.4); Eos % (Auto) 6.8 % (0.0-4.0); Hematocrit 31.2 % (39.0-51.0); Hemoglobin 10.5 gm/dL (13.0-17.0); Lymph # (Auto) 1.5 th/mm3 (1.0-4.8); Lymph % (Auto) 15.5 % (9.0-44.0); Mean Corpuscular HGB Conc 33.6 % (32.0-36.0); Mean Corpuscular Volume 86.4 fL (80.0-100.0); Mean Platelet Volume 8.5 fL (7.0-11.0); Mono # (Auto) 1.1 th/mm3 (0.0-0.9); Mono % (Auto) 11.4 % (0.0-8.0); Neut # (Auto) 6.4 th/mm3 (1.8-7.7); Neut % (Auto) 65.2 % (16.0-70.0); Platelet Count 271 th/mm3 (150-450); Red Blood Count 3.61 mil/mm3 (4.50-5.90); Red Cell Distribution Width 16.4 % (11.6-17.2); White Blood Count 9.9 th/mm3 (4.0-11.0)
[2018-03-02 07:39] LABS: Anion Gap 3 meq/L (5-15); Blood Urea Nitrogen 15 mg/dL (7-18); Calcium 8.2 mg/dL (8.5-10.1); Carbon Dioxide 30.8 meq/L (21.0-32.0); Chloride 107 meq/L (98-107); Glomerular Filtration Rate Greater Than 89 mL/min (>89); Glucose,Random 89 mg/dL (74-106); Potassium 3.5 meq/L (3.5-5.1); Sodium 141 meq/L (136-145)
[2018-03-02] MEDS: Pantoprazole Inj 40 MG Vial IV.PUSH SCH (08:00)
[2018-03-02] MEDS: Senna/Docusate Sodium 8.6/50 MG Tablet PO SCH ×3 (08:00→20:05)
[2018-03-02] MEDS: amLODIPine 5 MG Tablet PO SCH (08:00)
--- NOTE | 2018-03-02 11:24 | P.PNIM ---
Subjective Interval history: No acute distress. Fevers present overnight. Patient has poor appetite but willing to eat ice cream. Physical Exam Vital signs: Last Vital Signs Temp 100.6 F H 03/02/18 08:00 Pulse 62 03/02/18 08:02 Resp 25 H 03/02/18 08:02 BP 139/81 03/02/18 08:02 Pulse Ox 94 L 03/02/18 08:37 Intake & Output 02/28/18 03/01/18 03/02/18 03/03/18 06:59 06:59 06:59 06:59 Intake Total 675 / 675 1410 / 1410 2830 / 2830 1000 / 1000 Output Total 1125 / 1125 975 / 975 625 / 625 Balance -450 / -450 435 / 435 2205 / 2205 1000 / 1000 Weight 55.1 kg 55.1 kg 57.7 kg Narrative: GENERAL: NAD, A&Ox2 HEAD: Normocephalic. NECK: Supple, trachea midline. No lymphadenopathy. EYES: No scleral icterus. No injection or drainage. CARDIOVASCULAR: Regular rate and rhythm without murmurs, gallops, or rubs. RESPIRATORY: Breath sounds equal bilaterally. No accessory muscle use. GASTROINTESTINAL: Abdomen soft, non-tender, nondistended. MUSCULOSKELETAL: No cyanosis, or edema. SKIN: Warm and dry. NEURO: No focal neurological deficits. Urinary Catheter Management Condom: Cath placed during this visit: no Results Labs CBC & Chem 7: 03/02/18 06:13 03/02/18 06:13 Assessment and Plan (1) Stroke, hemorrhagic: Code(s): I61.9 - Nontraumatic intracerebral hemorrhage, unspecified Status: Acute (2) Pontine hemorrhage: Code(s): I61.3 - Nontraumatic intracerebral hemorrhage in brain stem Status: Acute (3) COPD with acute exacerbation: Code(s): J44.1 - Chronic obstructive pulmonary disease with (acute) exacerbation Status: Acute (4) Hypertensive urgency: Code(s): I16.0 - Hypertensive urgency Status: Acute (5) Bilateral inguinal hernia: Code(s): K40.20 - Bilateral inguinal hernia, without obstruction or gangrene, not specified as recurrent Status: Acute Plan 57-year-old male with a history of COPD, hypertension, dyslipidemia, tobacco use who presented to the emergency department on 02/25/2018 as a stroke alert. He experienced slurred speech with right-sided facial droop as well as left-sided upper and lower extremity weakness. CT head showed pontine hemorrhagic stroke. Acute pontine hemorrhagic stroke Continue supportive care Continue managing blood pressures with tight control Continue Keppra Hypertension Continue baseline treatment for tight control status post hemorrhagic stroke Follow blood pressures Adjust treatments as needed Continue amlodipine Perihilar pulmonary vascular congestion Fever May be related to atelectasis No elevation in white blood cell count UA negative Antibiotics deferred for now DVT prophylaxis SCDs Progress Note: Quality VTE Deep Vein Thrombosis/Pulmonary Embolism Present on Admission: No _ (1) Bilateral inguinal hernia Qualifiers: Obstruction and gangrene presence: without obstruction or gangrene Recurrence : recurrent Qualified Code(s): K40.21 - Bilateral inguinal hernia, without obstruction or gangrene, recurrent
[2018-03-03] MEDS: Sod Chloride 0.9% Inj 1,000 ML IV.CONT SCH ×3 (00:47→22:49)
[2018-03-03] MEDS: Morphine Inj 4 MG/ML Vial IV.PUSH PRN ×6 (02:36→23:26)
[2018-03-03] MEDS: Senna/Docusate Sodium 8.6/50 MG Tablet PO SCH ×2 (08:08→20:15)
[2018-03-03] MEDS: amLODIPine 5 MG Tablet PO SCH (08:08)
[2018-03-03] MEDS: Pantoprazole Inj 40 MG Vial IV.PUSH SCH (08:08)
--- NOTE | 2018-03-03 10:24 | P.PNIM ---
Subjective Interval history: No acute changes overnight. Long-term placement likely needed. Patient has no complaints today. Physical Exam Vital signs: Last Vital Signs Temp 98.4 F 03/03/18 08:00 Pulse 63 03/03/18 08:00 Resp 14 03/03/18 08:00 BP 123/80 03/03/18 08:00 Pulse Ox 96 03/03/18 08:00 Intake & Output 03/01/18 03/02/18 03/03/18 03/04/18 06:59 06:59 06:59 06:59 Intake Total 1410 / 1410 2830 / 2830 2690 / 2690 1000 / 1000 Output Total 975 / 975 625 / 625 1100 / 1100 Balance 435 / 435 2205 / 2205 1590 / 1590 1000 / 1000 Weight 55.1 kg 57.7 kg 59.2 kg Narrative: GENERAL: NAD, A&Ox2 HEAD: Normocephalic. NECK: Supple, trachea midline. No lymphadenopathy. EYES: No scleral icterus. No injection or drainage. CARDIOVASCULAR: Regular rate and rhythm without murmurs, gallops, or rubs. RESPIRATORY: Breath sounds equal bilaterally. No accessory muscle use. GASTROINTESTINAL: Abdomen soft, non-tender, nondistended. MUSCULOSKELETAL: No cyanosis, or edema. SKIN: Warm and dry. NEURO: No focal neurological deficits. Urinary Catheter Management Condom: Cath placed during this visit: no Results Labs CBC & Chem 7: 03/02/18 06:13 03/02/18 06:13 Assessment and Plan (1) Stroke, hemorrhagic: Code(s): I61.9 - Nontraumatic intracerebral hemorrhage, unspecified Status: Acute (2) Pontine hemorrhage: Code(s): I61.3 - Nontraumatic intracerebral hemorrhage in brain stem Status: Acute (3) COPD with acute exacerbation: Code(s): J44.1 - Chronic obstructive pulmonary disease with (acute) exacerbation Status: Acute (4) Hypertensive urgency: Code(s): I16.0 - Hypertensive urgency Status: Acute (5) Bilateral inguinal hernia: Code(s): K40.20 - Bilateral inguinal hernia, without obstruction or gangrene, not specified as recurrent Status: Acute Plan 57-year-old male with a history of COPD, hypertension, dyslipidemia, tobacco use who presented to the emergency department on 02/25/2018 as a stroke alert. He experienced slurred speech with right-sided facial droop as well as left-sided upper and lower extremity weakness. CT head showed pontine hemorrhagic stroke. No acute changes overnight. Continue supportive care. Continue physical therapy, Occupational Therapy, and speech therapy. Monitor clinically. Acute pontine hemorrhagic stroke Continue supportive care Continue managing blood pressures with tight control Continue Keppra Hypertension Continue baseline treatment for tight control status post hemorrhagic stroke Follow blood pressures Adjust treatments as needed Continue amlodipine Perihilar pulmonary vascular congestion Fever May be related to atelectasis No elevation in white blood cell count UA negative Antibiotics deferred for now DVT prophylaxis SCDs Progress Note: Quality VTE Deep Vein Thrombosis/Pulmonary Embolism Present on Admission: No _ (1) Bilateral inguinal hernia Qualifiers: Obstruction and gangrene presence: without obstruction or gangrene Recurrence : recurrent Qualified Code(s): K40.21 - Bilateral inguinal hernia, without obstruction or gangrene, recurrent
[2018-03-04] MEDS: Morphine Inj 4 MG/ML Vial IV.PUSH PRN (03:18)
[2018-03-04] MEDS: Sod Chloride 0.9% Inj 1,000 ML IV.CONT SCH ×2 (04:58→17:03)
[2018-03-04] MEDS: Pantoprazole Inj 40 MG Vial IV.PUSH SCH (09:26)
[2018-03-04] MEDS: Senna/Docusate Sodium 8.6/50 MG Tablet PO SCH ×2 (09:26→21:48)
[2018-03-04] MEDS: amLODIPine 5 MG Tablet PO SCH (09:26)
--- NOTE | 2018-03-04 11:06 | P.DS ---
DS: Providers Date of admission: 02/25/18 10:37 Primary care physician: Sage Walker MD Consults: 02/25/18 10:07 Consult to Neurology Stat Consulting Provider: Bigg Ramires For STAT consult, spoke directly to:: Dr. Ramires Preferred Sales Exec:: Bigg Ramires Reason for Consultation: Brain Attack Notified:: Service Spoke with:: gamal Date Notified:: 02/25/18 Time Notified:: 10:54 Ordering Provider: CHERELLE 02/25/18 10:50 Consult to Rehab Medicine Routine Consulting Provider: Dave Morrison Reason for Consultation: Hemorrhagic stroke Notified:: Service Spoke with:: FAUSTINO Date Notified:: 02/25/18 Time Notified:: 11:03 Ordering Provider: SARIAH 02/25/18 10:52 Consult to Neurosurgery Routine Consulting Provider: James Church Reason for Consultation: Hemorrhagic Stroke Notified:: Physician Spoke with:: Date Notified:: 02/25/18 Time Notified:: 10:59 Ordering Provider: SARIAH 02/25/18 11:39 Consult to Neurosurgery Routine Consulting Provider: James Church Preferred Sales Exec:: James Church Reason for Consultation: new admit Comments:: Notified UC consult already add to Dr. Church list, this a duplicate. Ordering Provider: ZAHRA 02/27/18 12:43 Consult to Hospitalist Routine Consulting Provider: Herminio Chandra Reason for Consultation: Consult and transfer to hospitalist service for medical management. Critical care will be signing off, please reconsult if needed Notified:: Service Spoke with:: KIRBY Date Notified:: 02/27/18 Time Notified:: 12:45 Comments:: Ordering Provider: PLACIDO Brief History from admission: This 57-year-old gentleman developed left-sided weakness and difficulty with speech. He presented as a stroke alert to [facility] with blood pressure 188/100, bradycardia at 52, and a CAT scan which reveals an acute pontine hemorrhage. He was transferred to the main campus or I met him on his arrival to the ICU. Blood pressure is 208/110. 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 He has spinal hardware in place but the extent of the injury is not available to us. He states that with rehabilitation he was walking again. Additionally, he is a heavy smoker and arrives with COPD exacerbation and severe bronchospasm. We have delivered 3 inhalation bronchodilator treatments back to back and his air movement is improved. DS: Diagnosis Discharge Diagnosis (1) Stroke, hemorrhagic: Status: Acute (2) Pontine hemorrhage: Status: Acute (3) COPD with acute exacerbation: Status: Acute (4) Hypertensive urgency: Status: Acute (5) Bilateral inguinal hernia: Status: Acute DS: Summary Mr. Garcia is a 57-year-old male. He was admitted secondary to hemorrhagic stroke. Neurologic deficits remain. He has been medically stable for several days but will need fci facility and continued physical rehabilitation. To call placement due to financial reasons. Patient's medically stable and cleared for discharge as of today as soon as placement available. Time Spent with Patient Total time spent providing and/or coordinating discharge services: Quality: Stroke Last date observed well: 02/25/18 Last time observed well: 07:50 Quality: VTE Deep Vein Thrombosis/Pulmonary Embolism Present on Admission: No Results Impressions ITS Impressions Head MRI 02/25/18 00:00 CONCLUSION: 1. There is acute hemorrhage in right farida without any significant mass effect. Etiology for this hemorrhage is not certain could be a hemorrhagic stroke. Head MRA 02/25/18 00:00 CONCLUSION: 1. Negative MRA Cow ([place]) non contrast. Head CT 02/26/18 06:00 CONCLUSION: 1. Stable appearance of pontine hemorrhage without evidence of mass effect or effacement of the fourth ventricle. . Chest X-Ray 03/01/18 00:00 CONCLUSION: Mild perihilar infiltrates are noted consistent with possible mild pulmonary vascular congestion. Clinical correlation is recommended. Discharge Plan Discharge Disposition Patient Disposition: 03 Discharge to SNF Discharge Condition Condition: Stable Discharge Order Discharge Orders: Discharge Order (Routine); Ordered 03/04/18 Ordered By: Chemo Gonzalez Discharge Details Anticipated Discharge Date: 03/04/18 Physicians Team Primary Care Provider: Sage Walker Attending Provider: Chemo Gonzalez Other Providers: Bigg Ramires ; James Church ; Dave Morrison Rxs /Orders / Referrals /Forms Prescriptions: No Action gabapentin 600 mg Tablet 600 mg PO TID RF: 0 carvedilol 12.5 mg Tablet 12.5 mg PO DAILY RF: 0 hydrocodone-acetaminophen 7.5-325 mg Tablet 1 tab PO Q4H PRN (Reason: Pain) RF: 0 albuterol sulfate [ProAir HFA] 90 mcg/actuation Hfa Aerosol Inhaler 2 puff INHALATION Q4-6H PRN (Reason: Shortness Of Breath Or Wheezing) RF: 0 [id number] [Excedrin Extra Strength] 250-250-65 mg Tablet 1 tab PO Q4-6H PRN (Reason: Headache) RF: 0 Referrals: Sage Walker MD [Primary Care Provider] - See Instructions Status ED Status: Left Department
[2018-03-05] MEDS: Sod Chloride 0.9% Inj 1,000 ML IV.CONT SCH ×2 (01:16→12:38)
[2018-03-05] MEDS: amLODIPine 5 MG Tablet PO SCH (08:40)
[2018-03-05] MEDS: Pantoprazole Inj 40 MG Vial IV.PUSH SCH (08:40)
[2018-03-05] MEDS: Senna/Docusate Sodium 8.6/50 MG Tablet PO SCH ×2 (08:40→20:31)
--- NOTE | 2018-03-05 12:48 | P.PNIM ---
Subjective Interval history: Follow-up CVA. He is doing okay awaiting placement. Physical Exam Vital signs: Last Vital Signs Temp 98.1 F 03/05/18 12:00 Pulse 68 03/05/18 12:00 Resp 18 03/05/18 12:00 BP 147/69 H 03/05/18 12:00 Pulse Ox 97 03/05/18 12:00 Intake & Output 03/03/18 03/04/18 03/05/18 03/06/18 06:59 06:59 06:59 06:59 Intake Total 2690 / 2690 3150 / 3150 1280 / 1280 1000 / 1000 Output Total 1100 / 1100 2600 / 2600 1350 / 1350 Balance 1590 / 1590 550 / 550 -70 / -70 1000 / 1000 Weight 59.2 kg 56.9 kg 56.9 kg Narrative: GENERAL: NAD, A&Ox2 CARDIOVASCULAR: Regular rate and rhythm without murmurs, gallops, or rubs. RESPIRATORY: Breath sounds equal bilaterally. No accessory muscle use. GASTROINTESTINAL: Abdomen soft, non-tender, nondistended. MUSCULOSKELETAL: No cyanosis, or edema. SKIN: Warm and dry. NEURO: No focal neurological deficits. Urinary Catheter Management Condom: Cath placed during this visit: yes Urethral indwelling: No Insertion date: 03/04/18 Insertion time: 14:15 Results Labs CBC & Chem 7: 03/02/18 06:13 03/02/18 06:13 Imaging Imaging: ITS Impressions Head MRI 02/25/18 00:00 CONCLUSION: 1. There is acute hemorrhage in right farida without any significant mass effect. Etiology for this hemorrhage is not certain could be a hemorrhagic stroke. Head MRA 02/25/18 00:00 CONCLUSION: 1. Negative MRA Cow ([place]) non contrast. Head CT 02/26/18 06:00 CONCLUSION: 1. Stable appearance of pontine hemorrhage without evidence of mass effect or effacement of the fourth ventricle. . Chest X-Ray 03/01/18 00:00 CONCLUSION: Mild perihilar infiltrates are noted consistent with possible mild pulmonary vascular congestion. Clinical correlation is recommended. Assessment and Plan (1) Stroke, hemorrhagic: Code(s): I61.9 - Nontraumatic intracerebral hemorrhage, unspecified Status: Acute (2) Pontine hemorrhage: Code(s): I61.3 - Nontraumatic intracerebral hemorrhage in brain stem Status: Acute (3) COPD with acute exacerbation: Code(s): J44.1 - Chronic obstructive pulmonary disease with (acute) exacerbation Status: Acute (4) Hypertensive urgency: Code(s): I16.0 - Hypertensive urgency Status: Acute (5) Bilateral inguinal hernia: Code(s): K40.20 - Bilateral inguinal hernia, without obstruction or gangrene, not specified as recurrent Status: Acute Plan 57-year-old male with a history of COPD, hypertension, dyslipidemia, tobacco use who presented to the emergency department on 02/25/2018 as a stroke alert. He experienced slurred speech with right-sided facial droop as well as left-sided upper and lower extremity weakness. CT head showed pontine hemorrhagic stroke. Acute pontine hemorrhagic stroke Continue supportive care Continue managing blood pressures with tight control Continue Keppra Hypertension Continue baseline treatment for tight control status post hemorrhagic stroke Follow blood pressures Adjust treatments as needed Continue amlodipine Perihilar pulmonary vascular congestion Fever May be related to atelectasis No elevation in white blood cell count UA negative Antibiotics deferred for now DVT prophylaxis SCDs Pharmacological prophylaxis contraindicated secondary to hemorrhagic CVA. Patient is medically stable for discharge pending placement Progress Note: Quality VTE Deep Vein Thrombosis/Pulmonary Embolism Present on Admission: No _ (1) Bilateral inguinal hernia Qualifiers: Obstruction and gangrene presence: without obstruction or gangrene Recurrence : recurrent Qualified Code(s): K40.21 - Bilateral inguinal hernia, without obstruction or gangrene, recurrent
[2018-03-05] MEDS: Gabapentin 300 MG Capsule PO SCH ×2 (13:34→18:05)
[2018-03-05] MEDS: levETIRAcetam 500 MG Tablet PO SCH (20:31)
[2018-03-06] MEDS: levETIRAcetam 500 MG Tablet PO SCH ×2 (08:34→21:37)
[2018-03-06] MEDS: Gabapentin 300 MG Capsule PO SCH ×3 (08:34→17:18)
[2018-03-06] MEDS: amLODIPine 5 MG Tablet PO SCH (08:35)
[2018-03-06] MEDS: Senna/Docusate Sodium 8.6/50 MG Tablet PO SCH ×2 (08:35→21:37)
[2018-03-06] MEDS ORDERED: Carvedilol 12.5 MG Tablet PO SCH (09:00)
--- NOTE | 2018-03-06 11:10 | P.PNIM ---
Subjective Interval history: F/u CVA. No c/o HR in the 40s on coreg Physical Exam Vital signs: Last Vital Signs Temp 97.8 F 03/06/18 08:00 Pulse 55 L 03/06/18 08:00 Resp 20 03/06/18 08:00 BP 113/72 03/06/18 08:00 Pulse Ox 95 03/06/18 09:56 Intake & Output 03/04/18 03/05/18 03/06/18 03/07/18 06:59 06:59 06:59 06:59 Intake Total 3150 / 3150 1280 / 1280 1740 / 1740 Output Total 2600 / 2600 1350 / 1350 600 / 600 Balance 550 / 550 -70 / -70 1140 / 1140 Weight 56.9 kg 56.9 kg Narrative: GENERAL: NAD, A&Ox2 CARDIOVASCULAR: Regular rhythm without murmurs, gallops, or rubs. RESPIRATORY: Breath sounds equal bilaterally. No accessory muscle use. GASTROINTESTINAL: Abdomen soft, non-tender, nondistended. MUSCULOSKELETAL: No cyanosis, or edema. SKIN: Warm and dry. NEURO: No focal neurological deficits. Urinary Catheter Management Condom: Cath placed during this visit: yes Urethral indwelling: No Insertion date: 03/04/18 Insertion time: 14:15 Results Labs CBC & Chem 7: 03/02/18 06:13 03/02/18 06:13 Assessment and Plan (1) Stroke, hemorrhagic: Code(s): I61.9 - Nontraumatic intracerebral hemorrhage, unspecified Status: Acute (2) Pontine hemorrhage: Code(s): I61.3 - Nontraumatic intracerebral hemorrhage in brain stem Status: Acute (3) COPD with acute exacerbation: Code(s): J44.1 - Chronic obstructive pulmonary disease with (acute) exacerbation Status: Acute (4) Hypertensive urgency: Code(s): I16.0 - Hypertensive urgency Status: Acute (5) Bilateral inguinal hernia: Code(s): K40.20 - Bilateral inguinal hernia, without obstruction or gangrene, not specified as recurrent Status: Acute Plan 57-year-old male with a history of COPD, hypertension, dyslipidemia, tobacco use who presented to the emergency department on 02/25/2018 as a stroke alert. He experienced slurred speech with right-sided facial droop as well as left-sided upper and lower extremity weakness. CT head showed pontine hemorrhagic stroke. Acute pontine hemorrhagic stroke Continue supportive care Continue managing blood pressures with tight control Continue Keppra Hypertension Sb Continue baseline treatment for tight control status post hemorrhagic stroke Follow blood pressures Adjust treatments as needed Continue amlodipine Decrease Coreg Perihilar pulmonary vascular congestion Fever May be related to atelectasis No elevation in white blood cell count UA negative Antibiotics deferred for now DVT prophylaxis SCDs Pharmacological prophylaxis contraindicated secondary to hemorrhagic CVA. Patient is medically stable for discharge pending placement Progress Note: Quality VTE Deep Vein Thrombosis/Pulmonary Embolism Present on Admission: No _ (1) Bilateral inguinal hernia Qualifiers: Obstruction and gangrene presence: without obstruction or gangrene Recurrence : recurrent Qualified Code(s): K40.21 - Bilateral inguinal hernia, without obstruction or gangrene, recurrent
[2018-03-07] MEDS: Senna/Docusate Sodium 8.6/50 MG Tablet PO SCH ×2 (09:06→23:36)
[2018-03-07] MEDS: amLODIPine 5 MG Tablet PO SCH (09:06)
[2018-03-07] MEDS: Gabapentin 300 MG Capsule PO SCH ×3 (09:06→18:10)
[2018-03-07] MEDS: levETIRAcetam 500 MG Tablet PO SCH ×2 (09:06→23:36)
--- NOTE | 2018-03-07 14:09 | P.PNIM ---
Subjective Interval history: Follow-up hypertension. Patient was hypotensive yesterday improved today as well as bradycardia he has no complaints. States he was noncompliant with antihypertensives Physical Exam Vital signs: Last Vital Signs Temp 98.6 F 03/07/18 12:00 Pulse 51 L 03/07/18 12:00 Resp 20 03/07/18 12:00 BP 113/65 03/07/18 12:00 Pulse Ox 100 03/07/18 12:00 Intake & Output 03/05/18 03/06/18 03/07/18 03/08/18 06:59 06:59 06:59 06:59 Intake Total 1280 / 1280 1740 / 1740 1105 / 1105 360 / 360 Output Total 1350 / 1350 600 / 600 1050 / 1050 4 / 4 Balance -70 / -70 1140 / 1140 55 / 55 356 / 356 Weight 56.9 kg Narrative: GENERAL: Well-developed, well-nourished in no distress CARDIOVASCULAR: Regular rhythm without murmurs, gallops, or rubs. RESPIRATORY: Breath sounds equal bilaterally. No accessory muscle use. GASTROINTESTINAL: Abdomen soft, non-tender, nondistended. MUSCULOSKELETAL: No cyanosis, or edema. SKIN: Warm and dry. NEURO: No focal neurological deficits. Urinary Catheter Management Condom: Cath placed during this visit: yes Urethral indwelling: No Insertion date: 03/04/18 Insertion time: 14:15 Results Labs CBC & Chem 7: 03/02/18 06:13 03/02/18 06:13 Assessment and Plan (1) Stroke, hemorrhagic: Code(s): I61.9 - Nontraumatic intracerebral hemorrhage, unspecified Status: Acute (2) Pontine hemorrhage: Code(s): I61.3 - Nontraumatic intracerebral hemorrhage in brain stem Status: Acute (3) COPD with acute exacerbation: Code(s): J44.1 - Chronic obstructive pulmonary disease with (acute) exacerbation Status: Acute (4) Hypertensive urgency: Code(s): I16.0 - Hypertensive urgency Status: Acute (5) Bilateral inguinal hernia: Code(s): K40.20 - Bilateral inguinal hernia, without obstruction or gangrene, not specified as recurrent Status: Acute Plan 57-year-old male with a history of COPD, hypertension, dyslipidemia, tobacco use who presented to the emergency department on 02/25/2018 as a stroke alert. He experienced slurred speech with right-sided facial droop as well as left-sided upper and lower extremity weakness. CT head showed pontine hemorrhagic stroke. Acute pontine hemorrhagic stroke Continue supportive care Continue managing blood pressures with tight control Continue Keppra Hypertension. Improved control Sinus bradycardia. Improving Continue baseline treatment for tight control status post hemorrhagic stroke Follow blood pressures Adjust treatments as needed Continue amlodipine Decrease Coreg to 3.125 mg Perihilar pulmonary vascular congestion Fever May be related to atelectasis No elevation in white blood cell count UA negative Antibiotics deferred for now DVT prophylaxis SCDs Pharmacological prophylaxis contraindicated secondary to hemorrhagic CVA. Patient is medically stable for discharge pending placement Progress Note: Quality VTE Deep Vein Thrombosis/Pulmonary Embolism Present on Admission: No _ (1) Bilateral inguinal hernia Qualifiers: Obstruction and gangrene presence: without obstruction or gangrene Recurrence : recurrent Qualified Code(s): K40.21 - Bilateral inguinal hernia, without obstruction or gangrene, recurrent
[2018-03-08] MEDS: Gabapentin 300 MG Capsule PO SCH ×3 (10:15→18:56)
[2018-03-08] MEDS: levETIRAcetam 500 MG Tablet PO SCH ×2 (10:15→20:51)
[2018-03-08] MEDS: amLODIPine 5 MG Tablet PO SCH (10:18)
[2018-03-08] MEDS: Senna/Docusate Sodium 8.6/50 MG Tablet PO SCH ×2 (10:18→20:51)
--- NOTE | 2018-03-08 12:45 | P.PNIM ---
Subjective Interval history: Follow-up intracranial hemorrhage and hypertension. States he is doing okay ambulated in the room using walker. Physical Exam Vital signs: Last Vital Signs Temp 97.4 F L 03/08/18 12:00 Pulse 58 L 03/08/18 12:00 Resp 20 03/08/18 12:00 BP 118/75 03/08/18 12:00 Pulse Ox 96 03/08/18 12:00 Intake & Output 03/06/18 03/07/18 03/08/18 03/09/18 06:59 06:59 06:59 06:59 Intake Total 1740 / 1740 1105 / 1105 600 / 600 Output Total 600 / 600 1050 / 1050 706 / 706 Balance 1140 / 1140 55 / 55 -106 / -106 Weight 56.9 kg Narrative: GENERAL: Well-developed, well-nourished in no distress CARDIOVASCULAR: Regular rhythm without murmurs, gallops, or rubs. RESPIRATORY: Breath sounds equal bilaterally. No accessory muscle use. GASTROINTESTINAL: Abdomen soft, non-tender, nondistended. MUSCULOSKELETAL: No cyanosis, or edema. NEURO: No focal neurological deficits. Urinary Catheter Management Condom: Cath placed during this visit: yes Urethral indwelling: No Insertion date: 03/04/18 Insertion time: 14:15 Results Labs CBC & Chem 7: 03/02/18 06:13 03/02/18 06:13 Assessment and Plan (1) Stroke, hemorrhagic: Code(s): I61.9 - Nontraumatic intracerebral hemorrhage, unspecified Status: Acute (2) Pontine hemorrhage: Code(s): I61.3 - Nontraumatic intracerebral hemorrhage in brain stem Status: Acute (3) COPD with acute exacerbation: Code(s): J44.1 - Chronic obstructive pulmonary disease with (acute) exacerbation Status: Acute (4) Hypertensive urgency: Code(s): I16.0 - Hypertensive urgency Status: Acute (5) Bilateral inguinal hernia: Code(s): K40.20 - Bilateral inguinal hernia, without obstruction or gangrene, not specified as recurrent Status: Acute Plan 57-year-old male with a history of COPD, hypertension, dyslipidemia, tobacco use who presented to the emergency department on 02/25/2018 as a stroke alert. He experienced slurred speech with right-sided facial droop as well as left-sided upper and lower extremity weakness. CT head showed pontine hemorrhagic stroke. Acute pontine hemorrhagic stroke Continue supportive care Continue managing blood pressures with tight control Continue Keppra Hypertension. Improved control Sinus bradycardia. Asymptomatic Continue baseline treatment for tight control status post hemorrhagic stroke Follow blood pressures Adjust treatments as needed Continue amlodipine Decrease Coreg to 3.125 mg Perihilar pulmonary vascular congestion Fever May be related to atelectasis No elevation in white blood cell count UA negative Antibiotics deferred for now DVT prophylaxis SCDs Pharmacological prophylaxis contraindicated secondary to hemorrhagic CVA. Patient is medically stable for discharge pending placement. He is improving may be discharged to home when cleared by physical therapy Progress Note: Quality VTE Deep Vein Thrombosis/Pulmonary Embolism Present on Admission: No _ (1) Bilateral inguinal hernia Qualifiers: Obstruction and gangrene presence: without obstruction or gangrene Recurrence : recurrent Qualified Code(s): K40.21 - Bilateral inguinal hernia, without obstruction or gangrene, recurrent
[2018-03-09] MEDS: Gabapentin 300 MG Capsule PO SCH ×3 (08:43→17:30)
[2018-03-09] MEDS: amLODIPine 5 MG Tablet PO SCH (08:43)
[2018-03-09] MEDS: Senna/Docusate Sodium 8.6/50 MG Tablet PO SCH ×2 (08:43→20:26)
[2018-03-09] MEDS: levETIRAcetam 500 MG Tablet PO SCH ×2 (08:43→20:26)
--- NOTE | 2018-03-09 12:37 | P.PNIM ---
Subjective Interval history: Follow-up intracranial hemorrhage and hypertension. He is doing better ambulated 75 feet with physical therapy. Patient has history of inguinal hernia Physical Exam Vital signs: Last Vital Signs Temp 98.8 F 03/09/18 11:05 Pulse 60 03/09/18 11:05 Resp 22 03/09/18 11:05 BP 113/67 03/09/18 11:05 Pulse Ox 94 L 03/09/18 11:05 Intake & Output 03/07/18 03/08/18 03/09/18 03/10/18 06:59 06:59 06:59 06:59 Intake Total 1105 / 1105 600 / 600 240 / 240 Output Total 1050 / 1050 706 / 706 2100 / 2100 Balance 55 / 55 -106 / -106 -1860 / -1860 Weight 56.9 kg 56.9 kg Narrative: GENERAL: Well-developed, well-nourished in no distress CARDIOVASCULAR: Regular rhythm without murmurs, gallops, or rubs. RESPIRATORY: Breath sounds equal bilaterally. No accessory muscle use. GASTROINTESTINAL: Abdomen soft, non-tender, nondistended. Reducible inguinal hernia MUSCULOSKELETAL: No cyanosis, or edema. NEURO: No focal neurological deficits. Urinary Catheter Management Condom: Cath placed during this visit: yes Urethral indwelling: No Insertion date: 03/04/18 Insertion time: 14:15 Results Labs CBC & Chem 7: 03/02/18 06:13 03/02/18 06:13 Assessment and Plan (1) Stroke, hemorrhagic: Code(s): I61.9 - Nontraumatic intracerebral hemorrhage, unspecified Status: Acute (2) Pontine hemorrhage: Code(s): I61.3 - Nontraumatic intracerebral hemorrhage in brain stem Status: Acute (3) COPD with acute exacerbation: Code(s): J44.1 - Chronic obstructive pulmonary disease with (acute) exacerbation Status: Acute (4) Hypertensive urgency: Code(s): I16.0 - Hypertensive urgency Status: Acute (5) Bilateral inguinal hernia: Code(s): K40.20 - Bilateral inguinal hernia, without obstruction or gangrene, not specified as recurrent Status: Acute Plan 57-year-old male with a history of COPD, hypertension, dyslipidemia, tobacco use who presented to the emergency department on 02/25/2018 as a stroke alert. He experienced slurred speech with right-sided facial droop as well as left-sided upper and lower extremity weakness. CT head showed pontine hemorrhagic stroke. Acute pontine hemorrhagic stroke Continue supportive care Continue managing blood pressures with tight control Continue Keppra Hypertension. Improved control Sinus bradycardia. Asymptomatic Continue baseline treatment for tight control status post hemorrhagic stroke Follow blood pressures Adjust treatments as needed Continue amlodipine Decrease Coreg to 3.125 mg Perihilar pulmonary vascular congestion Fever May be related to atelectasis No elevation in white blood cell count UA negative Antibiotics deferred for now DVT prophylaxis SCDs Pharmacological prophylaxis contraindicated secondary to hemorrhagic CVA. Patient is medically stable for discharge pending placement. He is improving may be discharged to home when cleared by physical therapy Progress Note: Quality VTE Deep Vein Thrombosis/Pulmonary Embolism Present on Admission: No _ (1) Bilateral inguinal hernia Qualifiers: Obstruction and gangrene presence: without obstruction or gangrene Recurrence : recurrent Qualified Code(s): K40.21 - Bilateral inguinal hernia, without obstruction or gangrene, recurrent
[2018-03-09 17:55] VITALS: O2SAT 95
[2018-03-10] MEDS: amLODIPine 5 MG Tablet PO SCH (08:25)
[2018-03-10] MEDS: Gabapentin 300 MG Capsule PO SCH ×2 (08:25→12:52)
[2018-03-10] MEDS: levETIRAcetam 500 MG Tablet PO SCH (08:25)
[2018-03-10] MEDS: Senna/Docusate Sodium 8.6/50 MG Tablet PO SCH (08:27)
[2018-03-10 08:35] VITALS: RESP 17
[2018-03-10 13:00] VITALS: BP 120/58; PULSE 60; TEMP 98.2
--- NOTE | 2018-03-10 14:06 | P.DS ---
DS: Providers Date of admission: 02/25/18 10:37 Primary care physician: Sage Walker MD Consults: 02/25/18 10:07 Consult to Neurology Stat Consulting Provider: Bigg Ramires For STAT consult, spoke directly to:: Dr. Ramires Preferred Chipper:: Bigg Ramires Reason for Consultation: Brain Attack Notified:: Service Spoke with:: gamal Date Notified:: 02/25/18 Time Notified:: 10:54 Ordering Provider: CHERELLE 02/25/18 10:50 Consult to Rehab Medicine Routine Consulting Provider: Dave Morrison Reason for Consultation: Hemorrhagic stroke Notified:: Service Spoke with:: FAUSTINO Date Notified:: 02/25/18 Time Notified:: 11:03 Ordering Provider: SARIAH 02/25/18 10:52 Consult to Neurosurgery Routine Consulting Provider: James Church Reason for Consultation: Hemorrhagic Stroke Notified:: Physician Spoke with:: Date Notified:: 02/25/18 Time Notified:: 10:59 Ordering Provider: SARIAH 02/25/18 11:39 Consult to Neurosurgery Routine Consulting Provider: James Church Preferred Chipper:: James Church Reason for Consultation: new admit Comments:: Notified UC consult already add to Dr. Church list, this a duplicate. Ordering Provider: ZAHRA 02/27/18 12:43 Consult to Hospitalist Routine Consulting Provider: Herminio Chandra Reason for Consultation: Consult and transfer to hospitalist service for medical management. Critical care will be signing off, please reconsult if needed Notified:: Service Spoke with:: KIRBY Date Notified:: 02/27/18 Time Notified:: 12:45 Comments:: Ordering Provider: PLACIDO Brief History from admission: This 57-year-old gentleman developed left-sided weakness and difficulty with speech. He presented as a stroke alert to [facility] with blood pressure 188/100, bradycardia at 52, and a CAT scan which reveals an acute pontine hemorrhage. He was transferred to the main campus or I met him on his arrival to the ICU. Blood pressure is 208/110. 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 He has spinal hardware in place but the extent of the injury is not available to us. He states that with rehabilitation he was walking again. Additionally, he is a heavy smoker and arrives with COPD exacerbation and severe bronchospasm. We have delivered 3 inhalation bronchodilator treatments back to back and his air movement is improved. DS: Diagnosis Discharge Diagnosis (1) Stroke, hemorrhagic: Status: Acute (2) Pontine hemorrhage: Status: Acute (3) COPD with acute exacerbation: Status: Acute (4) Hypertensive urgency: Status: Acute (5) Bilateral inguinal hernia: Status: Acute DS: Summary 57-year-old male with a history of COPD, hypertension, dyslipidemia, tobacco use who presented to the emergency department on 02/25/2018 as a stroke alert. He experienced slurred speech with right-sided facial droop as well as left-sided upper and lower extremity weakness. CT head showed pontine hemorrhagic stroke. Acute pontine hemorrhagic stroke Continue supportive care Continue managing blood pressures with tight control Continue Keppra Hypertension. Improved control Sinus bradycardia. Asymptomatic Continue baseline treatment for tight control status post hemorrhagic stroke Follow blood pressures Adjust treatments as needed Continue amlodipine Decrease Coreg to 3.125 mg Perihilar pulmonary vascular congestion Fever May be related to atelectasis No elevation in white blood cell count UA negative Antibiotics deferred for now DVT prophylaxis SCDs Pharmacological prophylaxis contraindicated secondary to hemorrhagic CVA. Time Spent with Patient Total time spent providing and/or coordinating discharge services: Greater than 30 minutes Quality: Stroke Last date observed well: 02/25/18 Last time observed well: 07:50 Quality: VTE Deep Vein Thrombosis/Pulmonary Embolism Present on Admission: No Exam Narrative Exam Narrative: GENERAL: WD WN SKIN: Warm and dry. CARDIOVASCULAR: Regular rate and rhythm. RESPIRATORY: No accessory muscle use. Clear to auscultation. Breath sounds equal bilaterally. GASTROINTESTINAL: Abdomen soft, non-tender, nondistended. MUSCULOSKELETAL: Extremities without clubbing, cyanosis, or edema. No obvious deformities. NEUROLOGICAL: Awake and alert. No obvious cranial nerve deficits. Motor grossly within normal limits. Five out of 5 muscle strength in the arms and legs. Normal speech. PSYCHIATRIC: Appropriate mood and affect; insight and judgment normal. Results Impressions ITS Impressions Head MRI 02/25/18 00:00 CONCLUSION: 1. There is acute hemorrhage in right farida without any significant mass effect. Etiology for this hemorrhage is not certain could be a hemorrhagic stroke. Head MRA 02/25/18 00:00 CONCLUSION: 1. Negative MRA Cow ([place]) non contrast. Head CT 02/26/18 06:00 CONCLUSION: 1. Stable appearance of pontine hemorrhage without evidence of mass effect or effacement of the fourth ventricle. . Chest X-Ray 03/01/18 00:00 CONCLUSION: Mild perihilar infiltrates are noted consistent with possible mild pulmonary vascular congestion. Clinical correlation is recommended. Discharge Plan Discharge Disposition Patient Disposition: 03 Discharge to SNF Discharge Condition Condition: Stable Discharge Order Discharge Orders: Discharge Order (Routine); Ordered 03/04/18 Ordered By: Chemo Gonzalez Discharge Details Anticipated Discharge Date: 03/04/18 Physicians Team Primary Care Provider: Sage Walker Attending Provider: Macho Humphreys Other Providers: Bigg Ramires ; James Church ; Dave Morrison Rxs /Orders / Referrals /Forms Prescriptions: Continue gabapentin 600 mg Tablet 600 mg PO TID RF: 0 albuterol sulfate [ProAir HFA] 90 mcg/actuation Hfa Aerosol Inhaler 2 puff INHALATION Q4-6H PRN (Reason: Shortness Of Breath Or Wheezing) RF: 0 Changed hydrocodone-acetaminophen 7.5-325 mg Tablet 1 tab PO Q4-6H PRN (Reason: Pain) Qty: 12 RF: 0 carvedilol 12.5 mg Tablet 3.125 mg PO DAILY Qty: 0 RF: 0 Discontinued [id number] [Excedrin Extra Strength] 250-250-65 mg Tablet 1 tab PO Q4-6H PRN (Reason: Headache) RF: 0 Ambulatory Orders / Order Sets / DME: Walker With Front Wheels (1 each) (Routine) Location: Determined by Patient Ordered By: Macho Humphreys Referrals: Sage Walker MD [Primary Care Provider] - See Instructions (1 week follow-up) Discharge Instructions Patient Printed Instructions: How to Choose and Use a Walker (GEN) Post Discharge Care Plan Care Plan Goals: Your Health Problems: Goals to Promote Your Health: * To prevent worsening of your condition * To maintain your health at the optimal level Directions to Meet Your Goals: * Take your medications as prescribed * Follow your dietary instruction * Follow activity as directed * Keep your appointments as scheduled * Take your immunizations and boosters as scheduled * If your symptoms worsen call your PCP * If no PCP go to Urgent Care or Emergency Room Smoking is dangerous to your health. Avoid second hand smoke. You may reach the 24-hour crisis hotline for domestic abuse at . Status ED Status: Left Department Discharge Information Discharge Date/Time: 03/10/18 13:30
== END 2018-03-10 13:30 | DRG 65 ==
LOC: PHED 10:04 → PHEDA 10:37 → N03 10:45 → N05 03-03 11:42
PROVIDERS: ADMIT Internal Medicine; ATTEND Internal Medicine
DX: R00.1 Bradycardia, unspecified; G82.20 Paraplegia, unspecified; R47.1 Dysarthria and anarthria; Z91.14 Patient's other noncompliance with medication regimen; R29.810 Facial weakness; I10 Essential (primary) hypertension; G81.94 Hemiplegia, unspecified affecting left nondominant side; M54.9 Dorsalgia, unspecified; Z82.49 Family history of ischemic heart disease and other diseases of the circulatory system; R47.81 Slurred speech; I61.3 Nontraumatic intracerebral hemorrhage in brain stem; I16.0 Hypertensive urgency; E78.5 Hyperlipidemia, unspecified; J44.1 Chronic obstructive pulmonary disease with (acute) exacerbation; F17.210 Nicotine dependence, cigarettes, uncomplicated; K40.20 Bilateral inguinal hernia, without obstruction or gangrene, not specified as recurrent; G89.29 Other chronic pain
CPT/HCPCS: 70450; 70544; 70553; 71010; 71045; 80048; 80053; 80307; 81001; 82140; 82550; 82948; 82962; 83605; 83735; 84100; 84132; 84443; 84484; 85025; 85384; 85610; 85730; 86850; 86900; 86901; 87641; 92507; 92522; 92526; 92610; 94150; 94640; 94664; 94665; 96125; 97110; 97116; 97127; 97162; 97167; 97530; 97532; 97535; 99291; A9585; C9113; C9238; G0195; G0515; J0360; J1953; J2270; J2405; J3480; J7030; J7050